=== PATIENT | male | born 1955 | race Caucasian/White ===

== ENCOUNTER 2021-01-08 10:47 | Inpatient (IN) | payer OTHER ==
[2021-01-08] MEDS ORDERED: MAGNESIUM CITRATE 300 ML BOTTLE PO PRN (11:44)
[2021-01-08] MEDS ORDERED: MAG HYDROX/AL HYDROX/SIMETH 30 ML UNIT-DOSE CUP PO PRN (11:44)
[2021-01-08] MEDS ORDERED: NICOTINE 10 MG CARTRIDGE (INHALER) IH PRN (11:44)
[2021-01-08] MEDS ORDERED: BISMUTH SUBSALICYLATE 524 MG/30 ML PO PRN (11:44)
[2021-01-08] MEDS ORDERED: IBUPROFEN 400 MG TABLET (FP) PO PRN (11:44)
[2021-01-08] MEDS ORDERED: MENTHOL/PHENOL 1 EACH UD MM PRN (11:44)
[2021-01-08] MEDS ORDERED: ONDANSETRON *ODT* 4 MG TABLET SL PRN (11:44)
[2021-01-08] MEDS ORDERED: ACETAMINOPHEN 325 MG TABLET (FP) PO PRN ×2 (11:44)
[2021-01-08] MEDS ORDERED: MAGNESIUM HYDROX 2400MG/30ML ORAL SUSPENSION 30 ML CUP PO PRN (11:44)
[2021-01-08 12:05] VITALS: BMI 26.1
[2021-01-08] MEDS: NICOTINE 7 MG/24 HOURS TOPICAL PATCH TD SCH (14:58)
[2021-01-08] MEDS: PRENATAL VITAMINS W/ FOLIC ACID TABLET (FP) PO SCH (14:58)
[2021-01-08] MEDS: hydrOXYzine PAMOATE 25 MG CAPSULE (FP) PO SCH ×3 (14:59→22:17)
[2021-01-08 17:35] LABS: HEMATOCRIT 30.8 % (35.4-49); HEMOGLOBIN 10.5 GM/dL (11.7-16.9); MCH 29.5 pg (25.7-33.7); MCHC 34.1 g/dl (32.0-35.9); MEAN CELL VOLUME 86.4 fl (80-96); MEAN PLT VOLUME 7.5 fl (7.5-11.1); PLATELET COUNT 85 10^3/uL (134-434); RBC 3.56 M/mm3 (4.00-5.60); RDW 17.1 % (11.9-15.9); WHITE BLOOD COUNT 3.1 K/mm3 (4.0-10.0)
[2021-01-08 17:37] LABS: CALCIUM 8.5 mg/dL (8.5-10.1)
[2021-01-08 17:38] LABS: ALBUMIN 2.9 g/dl (3.4-5.0); BLOOD UREA NITROGEN 12.4 mg/dL (7-18)
[2021-01-08 17:41] LABS: CREATININE 0.6 mg/dL (0.55-1.3)
[2021-01-08 17:43] LABS: TOT PROT 7.4 g/dl (6.4-8.2)
[2021-01-08] MEDS ORDERED: THIAMINE HCL 100 MG TABLET (FP) PO SCH (22:00)
[2021-01-08] MEDS ORDERED: MELATONIN 5 MG TABLETS PO SCH (22:00)
[2021-01-08] MEDS: METHOCARBAMOL 500 MG TABLET PO PRN (22:19)
[2021-01-08] MEDS: BACITRACIN 15 GM TUBE TOPICAL OINTMENT TP SCH (23:46)
[2021-01-09] MEDS: METHOCARBAMOL 500 MG TABLET PO PRN (04:58)
[2021-01-09] MEDS: hydrOXYzine PAMOATE 25 MG CAPSULE (FP) PO SCH ×4 (05:00→17:38)
[2021-01-09] MEDS: ALBUTEROL SO4 HFA INHALER IH PRN ×2 (05:18→09:46)
[2021-01-09] MEDS ORDERED: LEVOTHYROXINE NA 75 MCG TABLET (FP) PO SCH (10:30)
[2021-01-09] MEDS ORDERED: LEVOTHYROXINE NA 25 MCG TABLET (FP) PO SCH (10:30)
[2021-01-09] MEDS ORDERED: LISINOPRIL 5 MG TABLET PO SCH (10:30)
[2021-01-09] MEDS ORDERED: methaDONE HCL 10 MG TABLET PO SCH (10:45)
[2021-01-09] MEDS: BACITRACIN 15 GM TUBE TOPICAL OINTMENT TP SCH (11:26)
[2021-01-09] MEDS ORDERED: methaDONE 40 MG, methaDONE 30 MG PO SCH ×2 (11:45→12:00)
[2021-01-09] MEDS ORDERED: methaDONE HCL 40 MG DISPERSABLE TABLET ONE (11:52)
[2021-01-09] MEDS ORDERED: methaDONE HCL 10 MG TABLET ONE (11:52)
[2021-01-09] MEDS: GABAPENTIN 300 MG CAPSULE PO SCH ×2 (11:53→13:58)
[2021-01-09] MEDS: PRENATAL VITAMINS W/ FOLIC ACID TABLET (FP) PO SCH (11:53)
[2021-01-09] MEDS: NICOTINE 7 MG/24 HOURS TOPICAL PATCH TD SCH (11:53)
[2021-01-09] MEDS ORDERED: FLU VACC QS2021-22(6MOS UP)/PF 60 MCG/0.5 ML SYRINGE IM ONE (12:00)
[2021-01-09] MEDS ORDERED: PNEUMOCOCCAL 23 VACCINE 0.5 ML VIAL IM ONE (12:00)
[2021-01-09 12:46] VITALS: BP 123/73; PULSE 72; TEMP 98.8
[2021-01-09] MEDS ORDERED: PNEUMOC 13-VAL CONJ-DIP CRM/PF 0.5 ML DISP.SYRIN IM ONE (14:34)
[2021-01-09] MEDS ORDERED: PATIENT'S OWN MEDICATION (NON-FORMULARY) (Sitagliptin Phos/Metformin Hcl [Janumet 50-1,000 PO SCH (22:00)
[2021-01-09] MEDS ORDERED: ATORVASTATIN CA 80 MG TABLET (FP) PO SCH (22:00)
[2021-01-10] MEDS ORDERED: FUROSEMIDE 40 MG TABLET (FP) PO SCH (10:00)
[2021-01-10] MEDS ORDERED: PATIENT'S OWN MEDICATION (NON-FORMULARY) (Omeprazole 20 MG Capsule.Dr) PO SCH (10:00)
== END 2021-01-09 18:12 | disposition other institution (70) | DRG 897 ==
LOC: YASAS 10:47 → Y3N 12:04
PROVIDERS: ADMIT Allergy & Immunology; ATTEND Allergy & Immunology
PROC: HZ2ZZZZ Detoxification Services for Substance Abuse Treatment (ICD-10-PCS; principal; 2021-01-08)
DX: F10.230 Alcohol dependence with withdrawal, uncomplicated (principal); F14.20 Cocaine dependence, uncomplicated; F11.20 Opioid dependence, uncomplicated; F17.210 Nicotine dependence, cigarettes, uncomplicated; F20.9 Schizophrenia, unspecified; Z21 Asymptomatic human immunodeficiency virus [HIV] infection status; E78.5 Hyperlipidemia, unspecified; E03.9 Hypothyroidism, unspecified; E11.9 Type 2 diabetes mellitus without complications; Z79.84 Long term (current) use of oral hypoglycemic drugs; I10 Essential (primary) hypertension; J45.909 Unspecified asthma, uncomplicated; L97.519 Non-pressure chronic ulcer of other part of right foot with unspecified severity; Z89.421 Acquired absence of other right toe(s); Z99.89 Dependence on other enabling machines and devices; Z86.19 Personal history of other infectious and parasitic diseases; Z98.890 Other specified postprocedural states
CPT/HCPCS: 36415; 80053; 82962; 85027; 86780; C9803; U0003; U0005

== ENCOUNTER 2021-01-09 18:12 | Inpatient (IN) | payer OTHER ==
[2021-01-09] MEDS ORDERED: NICOTINE 10 MG CARTRIDGE (INHALER) IH PRN (19:48)
[2021-01-09] MEDS ORDERED: MENTHOL/PHENOL 1 EACH UD MM PRN (19:48)
[2021-01-09] MEDS ORDERED: LOPERAMIDE HCL 2 MG CAPSULE PO PRN (19:48)
[2021-01-09] MEDS ORDERED: P-EPHED 60MG/TRIPROLIDI 2.5MG TABLET PO PRN (19:48)
[2021-01-09] MEDS ORDERED: MAGNESIUM CITRATE 300 ML BOTTLE PO PRN (19:48)
[2021-01-09] MEDS ORDERED: guaiFENesin 200 MG/10 ML 10 ML UNIT-DOSE CUPS PO PRN (19:48)
[2021-01-09] MEDS: hydrOXYzine PAMOATE 25 MG CAPSULE (FP) PO PRN (21:36)
[2021-01-09] MEDS: THIAMINE HCL 100 MG TABLET (FP) PO SCH (21:36)
[2021-01-09] MEDS: MELATONIN 5 MG TABLETS PO SCH (21:37)
[2021-01-10] MEDS: methaDONE HCL 10 MG TABLET PO SCH (07:05)
[2021-01-10] MEDS: GABAPENTIN 300 MG CAPSULE PO SCH ×3 (07:06→21:51)
[2021-01-10] MEDS ORDERED: PT OWN MED DRAWER 7, Y5N ONE ×3 (07:14→20:26)
[2021-01-10] MEDS: LEVOTHYROXINE NA 75 MCG TABLET (FP) PO SCH (07:15)
[2021-01-10] MEDS: metFORMIN HCL 500 MG TABLET (FP) PO SCH ×2 (08:46→17:36)
[2021-01-10] MEDS: sitaGLIPtin PHOSPHATE 50 MG TABLET PO SCH ×2 (08:47→17:37)
[2021-01-10] MEDS: PANTOPRAZOLE 20 MG TABLET PO SCH (09:18)
[2021-01-10] MEDS: hydrOXYzine PAMOATE 25 MG CAPSULE (FP) PO PRN (09:18)
[2021-01-10] MEDS: PRENATAL VITAMINS W/ FOLIC ACID TABLET (FP) PO SCH (09:18)
[2021-01-10] MEDS: NICOTINE 7 MG/24 HOURS TOPICAL PATCH TD SCH (09:19)
[2021-01-10] MEDS ORDERED: PATIENT'S OWN MEDICATION (NON-FORMULARY) (Sitagliptin Phos/Metformin Hcl [Janumet 50-1,000 PO SCH (10:00)
[2021-01-10] MEDS: LISINOPRIL 5 MG TABLET PO SCH (10:20)
[2021-01-10] MEDS: SPIRONOLACTONE 25 MG TABLET PO SCH (10:20)
[2021-01-10] MEDS: FUROSEMIDE 40 MG TABLET (FP) PO SCH (10:20)
[2021-01-10] MEDS ORDERED: FLU VACC QS2021-22(6MOS UP)/PF 60 MCG/0.5 ML SYRINGE IM ONE (12:00)
[2021-01-10] MEDS: ALBUTEROL SO4 HFA INHALER IH PRN (12:35)
[2021-01-10] MEDS: MAGNESIUM HYDROX 2400MG/30ML ORAL SUSPENSION 30 ML CUP PO PRN (17:44)
[2021-01-10] MEDS: THIAMINE HCL 100 MG TABLET (FP) PO SCH (21:59)
[2021-01-10] MEDS: BACITRACIN 0.9 GM PACKET TP SCH (21:59)
[2021-01-10] MEDS: MELATONIN 5 MG TABLETS PO SCH (21:59)
[2021-01-10] MEDS: ATORVASTATIN CA 80 MG TABLET (FP) PO SCH (21:59)
[2021-01-11] MEDS: methaDONE HCL 10 MG TABLET PO SCH (07:11)
[2021-01-11] MEDS: GABAPENTIN 300 MG CAPSULE PO SCH ×4 (07:12→21:34)
[2021-01-11] MEDS: metFORMIN HCL 500 MG TABLET (FP) PO SCH ×2 (07:12→16:33)
[2021-01-11] MEDS: LEVOTHYROXINE NA 75 MCG TABLET (FP) PO SCH (07:12)
[2021-01-11] MEDS: sitaGLIPtin PHOSPHATE 50 MG TABLET PO SCH ×2 (07:12→16:34)
[2021-01-11] MEDS ORDERED: PT OWN MED DRAWER 7, Y5N ONE ×3 (07:14→19:18)
[2021-01-11] MEDS: hydrOXYzine PAMOATE 25 MG CAPSULE (FP) PO PRN (07:43)
[2021-01-11] MEDS: SPIRONOLACTONE 25 MG TABLET PO SCH (10:04)
[2021-01-11] MEDS: PRENATAL VITAMINS W/ FOLIC ACID TABLET (FP) PO SCH (10:05)
[2021-01-11] MEDS: LISINOPRIL 5 MG TABLET PO SCH (10:05)
[2021-01-11] MEDS: FUROSEMIDE 40 MG TABLET (FP) PO SCH (10:05)
[2021-01-11] MEDS: PANTOPRAZOLE 20 MG TABLET PO SCH (10:05)
[2021-01-11] MEDS: NICOTINE 7 MG/24 HOURS TOPICAL PATCH TD SCH (10:06)
[2021-01-11] MEDS: BACITRACIN 0.9 GM PACKET TP SCH ×2 (10:06→21:34)
[2021-01-11] MEDS: ATORVASTATIN CA 80 MG TABLET (FP) PO SCH (21:30)
[2021-01-11] MEDS: THIAMINE HCL 100 MG TABLET (FP) PO SCH (21:30)
[2021-01-11] MEDS: MELATONIN 5 MG TABLETS PO SCH (21:31)
[2021-01-12] MEDS ORDERED: PT OWN MED DRAWER 7, Y5N ONE ×3 (03:51→13:52)
[2021-01-12] MEDS ORDERED: methaDONE HCL 40 MG DISPERSABLE TABLET ONE (04:02)
[2021-01-12] MEDS ORDERED: methaDONE HCL 10 MG TABLET ONE (04:02)
[2021-01-12] MEDS: methaDONE 40 MG, methaDONE 30 MG PO SCH (06:15)
[2021-01-12] MEDS: sitaGLIPtin PHOSPHATE 50 MG TABLET PO SCH ×2 (06:16→17:01)
[2021-01-12] MEDS: GABAPENTIN 300 MG CAPSULE PO SCH ×3 (06:16→21:40)
[2021-01-12] MEDS: metFORMIN HCL 500 MG TABLET (FP) PO SCH ×2 (06:16→17:01)
[2021-01-12] MEDS: LEVOTHYROXINE NA 75 MCG TABLET (FP) PO SCH (06:16)
[2021-01-12] MEDS: BACITRACIN 0.9 GM PACKET TP SCH ×2 (09:15→21:40)
[2021-01-12] MEDS: PRENATAL VITAMINS W/ FOLIC ACID TABLET (FP) PO SCH (09:15)
[2021-01-12] MEDS: NICOTINE 7 MG/24 HOURS TOPICAL PATCH TD SCH (09:15)
[2021-01-12] MEDS: PANTOPRAZOLE 20 MG TABLET PO SCH (09:16)
[2021-01-12] MEDS: LISINOPRIL 5 MG TABLET PO SCH (09:57)
[2021-01-12] MEDS: SPIRONOLACTONE 25 MG TABLET PO SCH (09:57)
[2021-01-12] MEDS: FUROSEMIDE 40 MG TABLET (FP) PO SCH (09:57)
[2021-01-12] MEDS ORDERED: TUBERCULIN PPD 5 TU/0.1ML VIAL ID ONE (10:00)
[2021-01-12] MEDS: MELATONIN 5 MG TABLETS PO SCH (21:40)
[2021-01-12] MEDS: ATORVASTATIN CA 80 MG TABLET (FP) PO SCH (21:40)
[2021-01-12] MEDS: THIAMINE HCL 100 MG TABLET (FP) PO SCH (21:42)
[2021-01-13] MEDS ORDERED: methaDONE HCL 40 MG DISPERSABLE TABLET ONE (03:35)
[2021-01-13] MEDS ORDERED: methaDONE HCL 10 MG TABLET ONE (03:35)
[2021-01-13] MEDS ORDERED: PT OWN MED DRAWER 7, Y5N ONE ×2 (03:37→19:32)
[2021-01-13] MEDS: metFORMIN HCL 500 MG TABLET (FP) PO SCH ×2 (06:54→16:42)
[2021-01-13] MEDS: sitaGLIPtin PHOSPHATE 50 MG TABLET PO SCH ×2 (06:55→16:42)
[2021-01-13] MEDS: GABAPENTIN 300 MG CAPSULE PO SCH ×3 (06:55→21:24)
[2021-01-13] MEDS: LEVOTHYROXINE NA 75 MCG TABLET (FP) PO SCH (06:55)
[2021-01-13] MEDS: methaDONE 40 MG, methaDONE 30 MG PO SCH (06:55)
[2021-01-13] MEDS: MAGNESIUM HYDROX 2400MG/30ML ORAL SUSPENSION 30 ML CUP PO PRN (07:26)
[2021-01-13] MEDS: PRENATAL VITAMINS W/ FOLIC ACID TABLET (FP) PO SCH (09:36)
[2021-01-13] MEDS: PANTOPRAZOLE 20 MG TABLET PO SCH (09:36)
[2021-01-13] MEDS: hydrOXYzine PAMOATE 25 MG CAPSULE (FP) PO PRN (09:36)
[2021-01-13] MEDS: NICOTINE 7 MG/24 HOURS TOPICAL PATCH TD SCH (09:37)
[2021-01-13] MEDS: BACITRACIN 0.9 GM PACKET TP SCH ×2 (09:37→21:23)
[2021-01-13] MEDS: FUROSEMIDE 40 MG TABLET (FP) PO SCH (10:40)
[2021-01-13] MEDS: SPIRONOLACTONE 25 MG TABLET PO SCH (10:41)
[2021-01-13] MEDS: LISINOPRIL 5 MG TABLET PO SCH (10:41)
[2021-01-13 11:39] LABS: URINE APPEARANCE CLEAR; URINE BILIRUBIN NEGATIVE (NEGATIVE); URINE COLOR YELLOW; URINE GLUCOSE (UA) NEGATIVE (NEGATIVE); URINE KETONE NEGATIVE (NEGATIVE); URINE LEUK ESTERASE NEGATIVE (NEGATIVE); URINE NITRITE NEGATIVE (NEGATIVE); URINE PROTEIN NEGATIVE (NEGATIVE)
[2021-01-13] MEDS: MELATONIN 5 MG TABLETS PO SCH (21:24)
[2021-01-13] MEDS: THIAMINE HCL 100 MG TABLET (FP) PO SCH (21:24)
[2021-01-13] MEDS: ATORVASTATIN CA 80 MG TABLET (FP) PO SCH (21:24)
[2021-01-14] MEDS ORDERED: methaDONE HCL 10 MG TABLET ONE (03:18)
[2021-01-14] MEDS ORDERED: methaDONE HCL 40 MG DISPERSABLE TABLET ONE (03:19)
[2021-01-14] MEDS ORDERED: PT OWN MED DRAWER 7, Y5N ONE ×3 (03:20→11:55)
[2021-01-14] MEDS: GABAPENTIN 300 MG CAPSULE PO SCH ×3 (06:47→21:45)
[2021-01-14] MEDS: methaDONE 40 MG, methaDONE 30 MG PO SCH (06:47)
[2021-01-14] MEDS: LEVOTHYROXINE NA 75 MCG TABLET (FP) PO SCH (06:47)
[2021-01-14] MEDS: sitaGLIPtin PHOSPHATE 50 MG TABLET PO SCH ×2 (08:35→17:38)
[2021-01-14] MEDS: metFORMIN HCL 500 MG TABLET (FP) PO SCH ×2 (08:35→17:37)
[2021-01-14] MEDS: BACITRACIN 0.9 GM PACKET TP SCH ×2 (09:36→21:48)
[2021-01-14] MEDS: PRENATAL VITAMINS W/ FOLIC ACID TABLET (FP) PO SCH (09:36)
[2021-01-14] MEDS: FUROSEMIDE 40 MG TABLET (FP) PO SCH (09:36)
[2021-01-14] MEDS: SPIRONOLACTONE 25 MG TABLET PO SCH (09:36)
[2021-01-14] MEDS: NICOTINE 7 MG/24 HOURS TOPICAL PATCH TD SCH (09:37)
[2021-01-14] MEDS: PANTOPRAZOLE 20 MG TABLET PO SCH (09:38)
[2021-01-14] MEDS: LISINOPRIL 5 MG TABLET PO SCH (09:38)
[2021-01-14] MEDS ORDERED: FLU VACC QS2021-22(6MOS UP)/PF 60 MCG/0.5 ML SYRINGE IM ONE (12:00)
[2021-01-14] MEDS: MELATONIN 5 MG TABLETS PO SCH (21:45)
[2021-01-14] MEDS: ATORVASTATIN CA 80 MG TABLET (FP) PO SCH (21:45)
[2021-01-14] MEDS: THIAMINE HCL 100 MG TABLET (FP) PO SCH (21:45)
[2021-01-15] MEDS ORDERED: methaDONE HCL 10 MG TABLET ONE (04:03)
[2021-01-15] MEDS ORDERED: methaDONE HCL 40 MG DISPERSABLE TABLET ONE (04:03)
[2021-01-15] MEDS: metFORMIN HCL 500 MG TABLET (FP) PO SCH ×2 (06:25→16:29)
[2021-01-15] MEDS: methaDONE 40 MG, methaDONE 30 MG PO SCH (06:25)
[2021-01-15] MEDS: GABAPENTIN 300 MG CAPSULE PO SCH ×3 (06:25→21:18)
[2021-01-15] MEDS: sitaGLIPtin PHOSPHATE 50 MG TABLET PO SCH ×2 (06:25→16:29)
[2021-01-15] MEDS: LEVOTHYROXINE NA 75 MCG TABLET (FP) PO SCH (06:25)
[2021-01-15] MEDS: LISINOPRIL 5 MG TABLET PO SCH (09:46)
[2021-01-15] MEDS: PRENATAL VITAMINS W/ FOLIC ACID TABLET (FP) PO SCH (09:46)
[2021-01-15] MEDS: BACITRACIN 0.9 GM PACKET TP SCH ×2 (09:46→21:18)
[2021-01-15] MEDS: PANTOPRAZOLE 20 MG TABLET PO SCH (09:46)
[2021-01-15] MEDS: FUROSEMIDE 40 MG TABLET (FP) PO SCH (09:47)
[2021-01-15] MEDS: SPIRONOLACTONE 25 MG TABLET PO SCH (09:47)
[2021-01-15] MEDS: NICOTINE 7 MG/24 HOURS TOPICAL PATCH TD SCH (09:47)
[2021-01-15] MEDS ORDERED: PT OWN MED DRAWER 7, Y5N ONE ×2 (18:50→21:35)
[2021-01-15] MEDS: THIAMINE HCL 100 MG TABLET (FP) PO SCH (21:17)
[2021-01-15] MEDS: MELATONIN 5 MG TABLETS PO SCH (21:17)
[2021-01-15] MEDS: ATORVASTATIN CA 80 MG TABLET (FP) PO SCH (21:18)
[2021-01-15] MEDS: DOCUSATE SODIUM 100 MG CAPSULE (FP) PO SCH (21:18)
[2021-01-16] MEDS ORDERED: methaDONE HCL 40 MG DISPERSABLE TABLET ONE (03:23)
[2021-01-16] MEDS ORDERED: methaDONE HCL 10 MG TABLET ONE (03:23)
[2021-01-16] MEDS ORDERED: PT OWN MED DRAWER 7, Y5N ONE ×2 (03:25→19:40)
[2021-01-16] MEDS: GABAPENTIN 300 MG CAPSULE PO SCH ×3 (06:28→21:32)
[2021-01-16] MEDS: sitaGLIPtin PHOSPHATE 50 MG TABLET PO SCH ×2 (06:28→17:18)
[2021-01-16] MEDS: LEVOTHYROXINE NA 75 MCG TABLET (FP) PO SCH (06:28)
[2021-01-16] MEDS: metFORMIN HCL 500 MG TABLET (FP) PO SCH ×2 (06:28→17:18)
[2021-01-16] MEDS: methaDONE 40 MG, methaDONE 30 MG PO SCH (06:29)
[2021-01-16] MEDS: ALBUTEROL SO4 HFA INHALER IH PRN (09:22)
[2021-01-16] MEDS: BACITRACIN 0.9 GM PACKET TP SCH ×2 (09:22→21:31)
[2021-01-16] MEDS: SPIRONOLACTONE 25 MG TABLET PO SCH (09:22)
[2021-01-16] MEDS: LISINOPRIL 5 MG TABLET PO SCH (09:23)
[2021-01-16] MEDS: DOCUSATE SODIUM 100 MG CAPSULE (FP) PO SCH ×2 (09:23→21:31)
[2021-01-16] MEDS: PANTOPRAZOLE 20 MG TABLET PO SCH (09:23)
[2021-01-16] MEDS: PRENATAL VITAMINS W/ FOLIC ACID TABLET (FP) PO SCH (09:23)
[2021-01-16] MEDS: NICOTINE 7 MG/24 HOURS TOPICAL PATCH TD SCH (09:24)
[2021-01-16] MEDS: FUROSEMIDE 40 MG TABLET (FP) PO SCH (09:25)
[2021-01-16] MEDS ORDERED: hydrOXYzine PAMOATE 25 MG CAPSULE (FP) PO PRN (15:29)
[2021-01-16] MEDS: THIAMINE HCL 100 MG TABLET (FP) PO SCH (21:31)
[2021-01-16] MEDS: ATORVASTATIN CA 80 MG TABLET (FP) PO SCH (21:31)
[2021-01-16] MEDS: MELATONIN 5 MG TABLETS PO SCH (21:32)
[2021-01-17] MEDS ORDERED: methaDONE HCL 10 MG TABLET ONE (03:41)
[2021-01-17] MEDS ORDERED: methaDONE HCL 40 MG DISPERSABLE TABLET ONE (03:41)
[2021-01-17] MEDS ORDERED: PT OWN MED DRAWER 7, Y5N ONE ×2 (03:43→19:21)
[2021-01-17] MEDS: methaDONE 40 MG, methaDONE 30 MG PO SCH (06:05)
[2021-01-17] MEDS: sitaGLIPtin PHOSPHATE 50 MG TABLET PO SCH ×2 (06:05→17:42)
[2021-01-17] MEDS: LEVOTHYROXINE NA 75 MCG TABLET (FP) PO SCH (06:05)
[2021-01-17] MEDS: metFORMIN HCL 500 MG TABLET (FP) PO SCH ×2 (06:05→17:42)
[2021-01-17] MEDS: GABAPENTIN 300 MG CAPSULE PO SCH ×3 (06:05→21:21)
[2021-01-17] MEDS: BACITRACIN 0.9 GM PACKET TP SCH ×2 (09:26→21:48)
[2021-01-17] MEDS: PRENATAL VITAMINS W/ FOLIC ACID TABLET (FP) PO SCH (09:26)
[2021-01-17] MEDS: DOCUSATE SODIUM 100 MG CAPSULE (FP) PO SCH ×2 (09:26→21:21)
[2021-01-17] MEDS: LISINOPRIL 5 MG TABLET PO SCH (09:28)
[2021-01-17] MEDS: PANTOPRAZOLE 20 MG TABLET PO SCH (09:28)
[2021-01-17] MEDS: SPIRONOLACTONE 25 MG TABLET PO SCH (09:28)
[2021-01-17] MEDS: NICOTINE 7 MG/24 HOURS TOPICAL PATCH TD SCH (09:28)
[2021-01-17] MEDS: FUROSEMIDE 40 MG TABLET (FP) PO SCH (09:28)
[2021-01-17] MEDS: MELATONIN 5 MG TABLETS PO SCH (21:20)
[2021-01-17] MEDS: THIAMINE HCL 100 MG TABLET (FP) PO SCH (21:20)
[2021-01-17] MEDS: ATORVASTATIN CA 80 MG TABLET (FP) PO SCH (21:21)
[2021-01-17] MEDS: MAG HYDROX/AL HYDROX/SIMETH 30 ML UNIT-DOSE CUP PO PRN (21:22)
[2021-01-18] MEDS ORDERED: methaDONE HCL 40 MG DISPERSABLE TABLET ONE (02:40)
[2021-01-18] MEDS ORDERED: methaDONE HCL 10 MG TABLET ONE (02:40)
[2021-01-18] MEDS ORDERED: PT OWN MED DRAWER 7, Y5N ONE ×3 (05:35→20:30)
[2021-01-18] MEDS: methaDONE 40 MG, methaDONE 30 MG PO SCH (05:59)
[2021-01-18] MEDS: LEVOTHYROXINE NA 75 MCG TABLET (FP) PO SCH (06:01)
[2021-01-18] MEDS: GABAPENTIN 300 MG CAPSULE PO SCH ×3 (06:01→21:44)
[2021-01-18] MEDS: metFORMIN HCL 500 MG TABLET (FP) PO SCH ×2 (06:01→17:03)
[2021-01-18] MEDS: sitaGLIPtin PHOSPHATE 50 MG TABLET PO SCH ×2 (06:04→19:06)
[2021-01-18] MEDS: IBUPROFEN 400 MG TABLET (FP) PO PRN ×2 (07:31→14:17)
[2021-01-18] MEDS: PANTOPRAZOLE 20 MG TABLET PO SCH (09:39)
[2021-01-18] MEDS: BACITRACIN 0.9 GM PACKET TP SCH ×2 (09:39→21:43)
[2021-01-18] MEDS: NICOTINE 7 MG/24 HOURS TOPICAL PATCH TD SCH (09:40)
[2021-01-18] MEDS: PRENATAL VITAMINS W/ FOLIC ACID TABLET (FP) PO SCH (09:40)
[2021-01-18] MEDS: SPIRONOLACTONE 25 MG TABLET PO SCH (09:41)
[2021-01-18] MEDS: LISINOPRIL 5 MG TABLET PO SCH (09:41)
[2021-01-18] MEDS: FUROSEMIDE 40 MG TABLET (FP) PO SCH (09:41)
[2021-01-18] MEDS: DOCUSATE SODIUM 100 MG CAPSULE (FP) PO SCH ×2 (09:41→21:44)
[2021-01-18] MEDS: THIAMINE HCL 100 MG TABLET (FP) PO SCH (21:43)
[2021-01-18] MEDS: MELATONIN 5 MG TABLETS PO SCH (21:44)
[2021-01-18] MEDS: ATORVASTATIN CA 80 MG TABLET (FP) PO SCH (21:44)
[2021-01-19] MEDS ORDERED: PT OWN MED DRAWER 7, Y5N ONE ×2 (03:23→08:48)
[2021-01-19] MEDS ORDERED: methaDONE HCL 40 MG DISPERSABLE TABLET ONE (04:22)
[2021-01-19] MEDS ORDERED: methaDONE HCL 10 MG TABLET ONE (04:22)
[2021-01-19] MEDS: methaDONE 40 MG, methaDONE 30 MG PO SCH (06:25)
[2021-01-19] MEDS: GABAPENTIN 300 MG CAPSULE PO SCH ×3 (06:25→21:10)
[2021-01-19] MEDS: LEVOTHYROXINE NA 75 MCG TABLET (FP) PO SCH (06:25)
[2021-01-19] MEDS: sitaGLIPtin PHOSPHATE 50 MG TABLET PO SCH ×2 (06:26→16:38)
[2021-01-19] MEDS: metFORMIN HCL 500 MG TABLET (FP) PO SCH ×2 (06:26→16:38)
[2021-01-19] MEDS: IBUPROFEN 400 MG TABLET (FP) PO PRN ×3 (06:29→21:12)
[2021-01-19] MEDS: BACITRACIN 0.9 GM PACKET TP SCH ×2 (09:35→22:25)
[2021-01-19] MEDS: DOCUSATE SODIUM 100 MG CAPSULE (FP) PO SCH ×2 (09:36→21:10)
[2021-01-19] MEDS: PANTOPRAZOLE 20 MG TABLET PO SCH (09:36)
[2021-01-19] MEDS: PRENATAL VITAMINS W/ FOLIC ACID TABLET (FP) PO SCH (09:36)
[2021-01-19] MEDS: ALBUTEROL SO4 HFA INHALER IH PRN (09:36)
[2021-01-19] MEDS: SPIRONOLACTONE 25 MG TABLET PO SCH (09:37)
[2021-01-19] MEDS: FUROSEMIDE 40 MG TABLET (FP) PO SCH (09:37)
[2021-01-19] MEDS: NICOTINE 7 MG/24 HOURS TOPICAL PATCH TD SCH (09:38)
[2021-01-19] MEDS: LISINOPRIL 5 MG TABLET PO SCH (09:38)
[2021-01-19] MEDS: MELATONIN 5 MG TABLETS PO SCH (21:10)
[2021-01-19] MEDS: ATORVASTATIN CA 80 MG TABLET (FP) PO SCH (21:10)
[2021-01-19] MEDS: THIAMINE HCL 100 MG TABLET (FP) PO SCH (22:25)
[2021-01-20] MEDS ORDERED: methaDONE HCL 40 MG DISPERSABLE TABLET ONE (04:09)
[2021-01-20] MEDS ORDERED: methaDONE HCL 10 MG TABLET ONE (04:09)
[2021-01-20] MEDS ORDERED: PT OWN MED DRAWER 7, Y5N ONE ×2 (04:10→19:32)
[2021-01-20] MEDS: methaDONE 40 MG, methaDONE 30 MG PO SCH (06:15)
[2021-01-20] MEDS: sitaGLIPtin PHOSPHATE 50 MG TABLET PO SCH ×2 (06:17→17:47)
[2021-01-20] MEDS: GABAPENTIN 300 MG CAPSULE PO SCH ×3 (06:17→21:35)
[2021-01-20] MEDS: metFORMIN HCL 500 MG TABLET (FP) PO SCH ×2 (06:17→17:47)
[2021-01-20] MEDS: LEVOTHYROXINE NA 75 MCG TABLET (FP) PO SCH (06:17)
[2021-01-20] MEDS: IBUPROFEN 400 MG TABLET (FP) PO PRN ×2 (06:20→21:38)
[2021-01-20] MEDS: SPIRONOLACTONE 25 MG TABLET PO SCH (10:00)
[2021-01-20] MEDS: NICOTINE 7 MG/24 HOURS TOPICAL PATCH TD SCH (10:00)
[2021-01-20] MEDS: DOCUSATE SODIUM 100 MG CAPSULE (FP) PO SCH ×2 (10:03→21:35)
[2021-01-20] MEDS: FUROSEMIDE 40 MG TABLET (FP) PO SCH (10:03)
[2021-01-20] MEDS: LISINOPRIL 5 MG TABLET PO SCH (10:04)
[2021-01-20] MEDS: BACITRACIN 0.9 GM PACKET TP SCH ×2 (10:04→21:35)
[2021-01-20] MEDS: PANTOPRAZOLE 20 MG TABLET PO SCH (10:04)
[2021-01-20] MEDS: PRENATAL VITAMINS W/ FOLIC ACID TABLET (FP) PO SCH (10:06)
[2021-01-20] MEDS: ATORVASTATIN CA 80 MG TABLET (FP) PO SCH (21:35)
[2021-01-20] MEDS: MELATONIN 5 MG TABLETS PO SCH (21:35)
[2021-01-20] MEDS: THIAMINE HCL 100 MG TABLET (FP) PO SCH (21:36)
[2021-01-21] MEDS: ACETAMINOPHEN 325 MG TABLET (FP) PO PRN (01:31)
[2021-01-21] MEDS ORDERED: methaDONE HCL 10 MG TABLET ONE (03:20)
[2021-01-21] MEDS ORDERED: methaDONE HCL 40 MG DISPERSABLE TABLET ONE (03:21)
[2021-01-21] MEDS ORDERED: PT OWN MED DRAWER 7, Y5N ONE ×6 (03:56→21:39)
[2021-01-21] MEDS: methaDONE 40 MG, methaDONE 30 MG PO SCH (06:36)
[2021-01-21] MEDS: LEVOTHYROXINE NA 75 MCG TABLET (FP) PO SCH (06:38)
[2021-01-21] MEDS: IBUPROFEN 400 MG TABLET (FP) PO PRN ×2 (06:38→16:56)
[2021-01-21] MEDS: GABAPENTIN 300 MG CAPSULE PO SCH ×3 (06:38→21:10)
[2021-01-21] MEDS: sitaGLIPtin PHOSPHATE 50 MG TABLET PO SCH ×2 (07:47→16:55)
[2021-01-21] MEDS: metFORMIN HCL 500 MG TABLET (FP) PO SCH ×2 (07:48→16:54)
[2021-01-21] MEDS: BACITRACIN 0.9 GM PACKET TP SCH ×2 (09:18→21:09)
[2021-01-21] MEDS: PANTOPRAZOLE 20 MG TABLET PO SCH (09:18)
[2021-01-21] MEDS: DOCUSATE SODIUM 100 MG CAPSULE (FP) PO SCH ×2 (09:18→21:11)
[2021-01-21] MEDS: PRENATAL VITAMINS W/ FOLIC ACID TABLET (FP) PO SCH (09:18)
[2021-01-21] MEDS: LISINOPRIL 5 MG TABLET PO SCH (09:19)
[2021-01-21] MEDS: NICOTINE 7 MG/24 HOURS TOPICAL PATCH TD SCH (09:19)
[2021-01-21] MEDS: FUROSEMIDE 40 MG TABLET (FP) PO SCH (09:20)
[2021-01-21] MEDS: SPIRONOLACTONE 25 MG TABLET PO SCH (09:20)
[2021-01-21] MEDS: MAGNESIUM HYDROX 2400MG/30ML ORAL SUSPENSION 30 ML CUP PO PRN (15:59)
[2021-01-21] MEDS: ATORVASTATIN CA 80 MG TABLET (FP) PO SCH (21:09)
[2021-01-21] MEDS: MELATONIN 5 MG TABLETS PO SCH (21:10)
[2021-01-21] MEDS: THIAMINE HCL 100 MG TABLET (FP) PO SCH (21:10)
[2021-01-21] MEDS: FLUOCINONIDE 0.05% TOP OINT (60 GM TUBE) TP SCH (21:11)
[2021-01-22] MEDS ORDERED: PT OWN MED DRAWER 7, Y5N ONE ×2 (00:35→12:10)
[2021-01-22] MEDS: IBUPROFEN 400 MG TABLET (FP) PO PRN (02:36)
[2021-01-22] MEDS ORDERED: methaDONE HCL 10 MG TABLET ONE (03:54)
[2021-01-22] MEDS ORDERED: methaDONE HCL 40 MG DISPERSABLE TABLET ONE (03:54)
[2021-01-22] MEDS: metFORMIN HCL 500 MG TABLET (FP) PO SCH (06:26)
[2021-01-22] MEDS: methaDONE 40 MG, methaDONE 30 MG PO SCH (06:26)
[2021-01-22] MEDS: sitaGLIPtin PHOSPHATE 50 MG TABLET PO SCH (06:26)
[2021-01-22] MEDS: GABAPENTIN 300 MG CAPSULE PO SCH ×2 (06:26→14:42)
[2021-01-22] MEDS: ACETAMINOPHEN 325 MG TABLET (FP) PO PRN (06:29)
[2021-01-22 06:46] VITALS: TEMP 97.1
[2021-01-22] MEDS ORDERED: ERGOCALCIFEROL (VIT D2) 50,000 UNIT (1.25 MG) CAPSULE PO SCH ×3 (08:15→10:00)
[2021-01-22] MEDS: PANTOPRAZOLE 20 MG TABLET PO SCH (09:46)
[2021-01-22] MEDS: LEVOTHYROXINE NA 75 MCG TABLET (FP) PO SCH (09:47)
[2021-01-22] MEDS: PRENATAL VITAMINS W/ FOLIC ACID TABLET (FP) PO SCH (09:47)
[2021-01-22] MEDS: BACITRACIN 0.9 GM PACKET TP SCH (09:47)
[2021-01-22] MEDS: NICOTINE 7 MG/24 HOURS TOPICAL PATCH TD SCH (09:49)
[2021-01-22] MEDS ORDERED: PATIENT'S OWN MEDICATION (NON-FORMULARY) (Iron [Iron] 18 MG Tablet) PO SCH (10:00)
[2021-01-22] MEDS ORDERED: SULFAMETHOXAZOLE/TRIMETHOPRIM 800MG/160MG D.S. TABLET PO SCH (10:00)
[2021-01-22] MEDS: FLUOCINONIDE 0.05% TOP OINT (60 GM TUBE) TP SCH (10:44)
[2021-01-22] MEDS: SPIRONOLACTONE 25 MG TABLET PO SCH (10:44)
[2021-01-22] MEDS: FUROSEMIDE 40 MG TABLET (FP) PO SCH (10:44)
[2021-01-22 12:25] VITALS: BP 97/56; PULSE 59
[2021-01-22] MEDS: MAG HYDROX/AL HYDROX/SIMETH 30 ML UNIT-DOSE CUP PO PRN (13:09)
== END 2021-01-22 15:03 | disposition home or self-care (01) | DRG 895 ==
LOC: YASAS 18:12 → Y3E 18:14
PROVIDERS: ADMIT Allergy & Immunology; ATTEND Allergy & Immunology
PROC: HZ42ZZZ Group Counseling for Substance Abuse Treatment, Cognitive-Behavioral (ICD-10-PCS; principal; 2021-01-09)
DX: F10.20 Alcohol dependence, uncomplicated (principal); F14.20 Cocaine dependence, uncomplicated; F11.20 Opioid dependence, uncomplicated; F19.282 Other psychoactive substance dependence with psychoactive substance-induced sleep disorder; F19.24 Other psychoactive substance dependence with psychoactive substance-induced mood disorder; F31.9 Bipolar disorder, unspecified; F20.9 Schizophrenia, unspecified; Z21 Asymptomatic human immunodeficiency virus [HIV] infection status; E78.5 Hyperlipidemia, unspecified; E03.9 Hypothyroidism, unspecified; I10 Essential (primary) hypertension; J45.909 Unspecified asthma, uncomplicated; Z86.19 Personal history of other infectious and parasitic diseases; Z98.890 Other specified postprocedural states; Z89.421 Acquired absence of other right toe(s)
CPT/HCPCS: 81003; 82140; 82962; 90686; G0008

== ENCOUNTER 2022-09-29 14:07 | Inpatient (IN) | payer OTHER ==
[2022-09-29 16:01] VITALS: BMI 29.3
[2022-09-29] MEDS ORDERED: BENZOCAINE/MENTHOL (CHLORASEPTIC ) LOZENGE MM PRN (18:18)
[2022-09-29] MEDS ORDERED: COLLOIDAL OATMEAL 1 BAR EACH TP PRN (18:18)
[2022-09-29] MEDS ORDERED: NALOXONE HCL 0.4 MG/ML VIAL IM PRN (18:18)
[2022-09-29] MEDS ORDERED: MAGNESIUM HYDROX 2400MG/30ML ORAL SUSPENSION 30 ML CUP PO PRN (18:18)
[2022-09-29] MEDS ORDERED: BENZONATATE 200 MG CAPSULE PO PRN (18:18)
[2022-09-29] MEDS ORDERED: NALOXONE HCL (KLOXXADO) 8 MG SPRAY NS PRN (18:18)
[2022-09-29] MEDS ORDERED: LOPERAMIDE HCL 2 MG CAPSULE PO PRN (18:18)
[2022-09-29] MEDS ORDERED: guaiFENesin 600 MG TABLET.ER (FP) PO PRN (18:18)
[2022-09-29] MEDS ORDERED: MAG HYDROX/AL HYDROX/SIMETH 30 ML UNIT-DOSE CUP PO PRN (18:18)
[2022-09-29] MEDS ORDERED: P-EPHED 60MG/TRIPROLIDI 2.5MG TABLET PO PRN (18:18)
[2022-09-29] MEDS ORDERED: AMMONIUM LACTATE 12% LOTION 225 GM BOTTLE TP PRN (18:18)
[2022-09-29] MEDS ORDERED: POLYETHYLENE GLYCOL (HEALTHYLAX) 3350 17 GM PACKET PO PRN (18:18)
[2022-09-29] MEDS ORDERED: INSULIN SLIDING SCALE (NOVOLOG) 1 VIAL SQ ONE (20:47)
[2022-09-29] MEDS ORDERED: TUBERCULIN PPD 5 TU/0.1ML VIAL ID ONE ×2 (20:47→21:49)
[2022-09-29] MEDS: INSULIN SLIDING SCALE (NOVOLOG) 1 VIAL SQ SCH (21:10)
[2022-09-29] MEDS: MELATONIN 5 MG TABLETS PO SCH (21:16)
[2022-09-29] MEDS: THIAMINE HCL 100 MG TABLET (FP) PO SCH (21:16)
[2022-09-29] MEDS ORDERED: TUBERCULIN PPD 5 TU/0.1ML SYRINGE (IN PATIENT USE ONLY) ID ONE (22:00)
[2022-09-29] MEDS: ACETAMINOPHEN 325 MG TABLET (FP) PO PRN (22:11)
[2022-09-30] MEDS: IBUPROFEN 600 MG TABLET (FP) PO PRN ×2 (02:25→16:15)
[2022-09-30] MEDS: INSULIN SLIDING SCALE (NOVOLOG) 1 VIAL SQ SCH ×4 (06:06→21:38)
[2022-09-30] MEDS: PRENATAL VITAMINS W/ FOLIC ACID TABLET (FP) PO SCH (09:29)
[2022-09-30] MEDS ORDERED: methaDONE HCL 10 MG TABLET PO SCH ×3 (09:30→10:05)
[2022-09-30] MEDS ORDERED: ERGOCALCIFEROL (VIT D2) 50,000 UNIT (1.25 MG) CAPSULE PO SCH (09:45)
[2022-09-30] MEDS ORDERED: GABAPENTIN 300 MG CAPSULE PO SCH (09:45)
[2022-09-30] MEDS ORDERED: PATIENT'S OWN MEDICATION (NON-FORMULARY) (Dolutegravir Sodium/Lamivudine [Dovato 50-300 Mg PO SCH (10:00)
[2022-09-30] MEDS ORDERED: PATIENT'S OWN MEDICATION (NON-FORMULARY) (Insulin Aspart [Novolog Flexpen] 100 UNIT/ML Ins SQ SCH (10:00)
[2022-09-30] MEDS: COLLAGENASE CLOSTRIDIUM HIST. 30 GRAMS TUBE TP SCH (10:16)
[2022-09-30] MEDS: ASCORBIC ACID 500 MG TABLET (FP) PO SCH (10:17)
[2022-09-30] MEDS: LEVOTHYROXINE NA 25 MCG TABLET (FP) PO SCH (10:17)
[2022-09-30] MEDS: ASPIRIN 81 MG CHEWABLE TABLETS PO SCH (10:18)
[2022-09-30] MEDS: FUROSEMIDE 40 MG TABLET (FP) PO SCH (10:18)
[2022-09-30] MEDS: ERGOCALCIFEROL (VIT D2) 50,000 UNIT (1.25 MG) CAPSULE PO SCH (10:33)
[2022-09-30 11:37] LABS: HEMATOCRIT 37.6 % (35.4-49); HEMOGLOBIN 12.6 GM/dL (11.7-16.9); MCH 30.1 pg (25.7-33.7); MCHC 33.5 g/dl (32.0-35.9); MEAN PLT VOLUME 7.7 fl (7.5-11.1); PLATELET COUNT 84 10^3/uL (134-434); RBC 4.18 M/mm3 (4.00-5.60); RDW 14.8 % (11.9-15.9); WHITE BLOOD COUNT 3.2 K/mm3 (4.0-10.0)
[2022-09-30 11:40] LABS: EPI CELLS >36 /uL (0-25.1); HYALINE CASTS 16 /uL (0-3.1); PH,URINE 5.5 (5.0-8.0); URINE APPEARANCE CLEAR; URINE BACTERIA 57 /uL (0-1359); URINE BILIRUBIN 1+ (NEGATIVE); URINE COLOR DK YELLOW; URINE GLUCOSE (UA) NEGATIVE (NEGATIVE); URINE KETONE NEGATIVE (NEGATIVE); URINE LEUK ESTERASE TRACE (NEGATIVE); URINE NITRITE NEGATIVE (NEGATIVE); URINE PROTEIN 1+ (NEGATIVE); URINE RBC 7 /uL (0-23.9); URINE WBC 51 /uL (0-25.8)
[2022-09-30 12:16] LABS: POTASSIUM 4.3 mmol/L (3.5-5.1)
[2022-09-30 12:22] LABS: CALCIUM 10.3 mg/dL (8.5-10.1)
[2022-09-30 12:23] LABS: ALBUMIN 3.9 g/dl (3.4-5.0)
[2022-09-30] MEDS: ARIPiprazole 5 MG TABLET PO SCH (12:24)
[2022-09-30 12:25] LABS: BLOOD UREA NITROGEN 17.2 mg/dL (7-18); CREATININE 1.1 mg/dL (0.55-1.3)
[2022-09-30 12:26] LABS: TOT PROT 7.4 g/dl (6.4-8.2)
[2022-09-30 12:27] LABS: BILIRUBIN,TOTAL 0.6 mg/dL (0.2-1)
[2022-09-30] MEDS: GABAPENTIN 300 MG CAPSULE PO SCH ×2 (13:34→21:09)
[2022-09-30] MEDS: PANTOPRAZOLE 20 MG TABLET PO SCH (16:12)
[2022-09-30] MEDS: DOLUTEGRAVIR SODIUM 50 MG TABLET (NON-FORMULARY) PO SCH (16:12)
[2022-09-30] MEDS: THIAMINE HCL 100 MG TABLET (FP) PO SCH (21:09)
[2022-09-30] MEDS: MELATONIN 5 MG TABLETS PO SCH (21:09)
[2022-09-30] MEDS: ATORVASTATIN CA 80 MG TABLET (FP) PO SCH (21:10)
[2022-09-30] MEDS ORDERED: ATORVASTATIN CA 40 MG TABLET (FP) ONE (21:10)
[2022-09-30] MEDS: INSULIN (NOVOLOG) ASPART 100 UNITS/ML 10ML VIAL SQ SCH (21:38)
[2022-09-30] MEDS ORDERED: traZODone HCL 50 MG TABLET (FP) PO SCH (22:00)
[2022-10-01] MEDS: GABAPENTIN 300 MG CAPSULE PO SCH ×3 (06:10→21:30)
[2022-10-01] MEDS: LEVOTHYROXINE NA 25 MCG TABLET (FP) PO SCH (06:11)
[2022-10-01] MEDS: INSULIN SLIDING SCALE (NOVOLOG) 1 VIAL SQ SCH ×4 (06:12→21:32)
[2022-10-01] MEDS: ASCORBIC ACID 500 MG TABLET (FP) PO SCH (10:09)
[2022-10-01] MEDS: ARIPiprazole 5 MG TABLET PO SCH (10:09)
[2022-10-01] MEDS: PRENATAL VITAMINS W/ FOLIC ACID TABLET (FP) PO SCH (10:09)
[2022-10-01] MEDS: ASPIRIN 81 MG CHEWABLE TABLETS PO SCH (10:09)
[2022-10-01] MEDS: FUROSEMIDE 40 MG TABLET (FP) PO SCH (10:09)
[2022-10-01] MEDS: PANTOPRAZOLE 20 MG TABLET PO SCH (10:09)
[2022-10-01] MEDS: DOLUTEGRAVIR SODIUM 50 MG TABLET (NON-FORMULARY) PO SCH (10:12)
[2022-10-01] MEDS: COLLAGENASE CLOSTRIDIUM HIST. 30 GRAMS TUBE TP SCH (10:12)
[2022-10-01] MEDS: INSULIN (NOVOLOG) ASPART 100 UNITS/ML 10ML VIAL SQ SCH ×2 (11:07→21:32)
[2022-10-01] MEDS: IBUPROFEN 600 MG TABLET (FP) PO PRN (17:14)
[2022-10-01] MEDS ORDERED: ATORVASTATIN CA 40 MG TABLET (FP) ONE (18:36)
[2022-10-01] MEDS: THIAMINE HCL 100 MG TABLET (FP) PO SCH (21:29)
[2022-10-01] MEDS: MELATONIN 5 MG TABLETS PO SCH (21:29)
[2022-10-01] MEDS: ATORVASTATIN CA 80 MG TABLET (FP) PO SCH (21:30)
[2022-10-01] MEDS: traZODone HCL 50 MG TABLET (FP) PO SCH (21:30)
[2022-10-02] MEDS: LEVOTHYROXINE NA 25 MCG TABLET (FP) PO SCH (06:19)
[2022-10-02] MEDS: GABAPENTIN 300 MG CAPSULE PO SCH ×3 (06:19→21:27)
[2022-10-02] MEDS: cloNIDine HCL 0.1 MG TABLET PO PRN ×2 (06:26→21:41)
[2022-10-02] MEDS: INSULIN SLIDING SCALE (NOVOLOG) 1 VIAL SQ SCH ×5 (06:33→22:18)
[2022-10-02] MEDS: PRENATAL VITAMINS W/ FOLIC ACID TABLET (FP) PO SCH (09:36)
[2022-10-02] MEDS: INSULIN (NOVOLOG) ASPART 100 UNITS/ML 10ML VIAL SQ SCH ×2 (09:39→22:18)
[2022-10-02] MEDS: ARIPiprazole 5 MG TABLET PO SCH (09:41)
[2022-10-02] MEDS: ASPIRIN 81 MG CHEWABLE TABLETS PO SCH (09:41)
[2022-10-02] MEDS: COLLAGENASE CLOSTRIDIUM HIST. 30 GRAMS TUBE TP SCH (09:41)
[2022-10-02] MEDS: ASCORBIC ACID 500 MG TABLET (FP) PO SCH (09:41)
[2022-10-02] MEDS: DOLUTEGRAVIR SODIUM 50 MG TABLET (NON-FORMULARY) PO SCH (09:41)
[2022-10-02] MEDS: PANTOPRAZOLE 20 MG TABLET PO SCH (09:42)
[2022-10-02] MEDS: FUROSEMIDE 40 MG TABLET (FP) PO SCH (09:42)
[2022-10-02] MEDS: IBUPROFEN 600 MG TABLET (FP) PO PRN (15:06)
[2022-10-02] MEDS ORDERED: ATORVASTATIN CA 40 MG TABLET (FP) ONE (18:51)
[2022-10-02] MEDS: MELATONIN 5 MG TABLETS PO SCH (21:27)
[2022-10-02] MEDS: traZODone HCL 50 MG TABLET (FP) PO SCH (21:27)
[2022-10-02] MEDS: THIAMINE HCL 100 MG TABLET (FP) PO SCH (21:27)
[2022-10-02] MEDS: ATORVASTATIN CA 80 MG TABLET (FP) PO SCH (21:27)
[2022-10-03] MEDS: cloNIDine HCL 0.1 MG TABLET PO PRN (06:24)
[2022-10-03] MEDS: LEVOTHYROXINE NA 25 MCG TABLET (FP) PO SCH (06:24)
[2022-10-03] MEDS: GABAPENTIN 300 MG CAPSULE PO SCH ×3 (06:24→21:10)
[2022-10-03] MEDS: INSULIN SLIDING SCALE (NOVOLOG) 1 VIAL SQ SCH ×4 (06:29→21:10)
[2022-10-03] MEDS: COLLAGENASE CLOSTRIDIUM HIST. 30 GRAMS TUBE TP SCH (09:40)
[2022-10-03] MEDS: PRENATAL VITAMINS W/ FOLIC ACID TABLET (FP) PO SCH (09:40)
[2022-10-03] MEDS: INSULIN (NOVOLOG) ASPART 100 UNITS/ML 10ML VIAL SQ SCH ×2 (09:43→21:10)
[2022-10-03] MEDS: DOLUTEGRAVIR SODIUM 50 MG TABLET (NON-FORMULARY) PO SCH (09:44)
[2022-10-03] MEDS: ARIPiprazole 5 MG TABLET PO SCH (09:45)
[2022-10-03] MEDS: ASPIRIN 81 MG CHEWABLE TABLETS PO SCH (09:45)
[2022-10-03] MEDS: ASCORBIC ACID 500 MG TABLET (FP) PO SCH (09:45)
[2022-10-03] MEDS: FUROSEMIDE 40 MG TABLET (FP) PO SCH (09:45)
[2022-10-03] MEDS: PANTOPRAZOLE 20 MG TABLET PO SCH (09:45)
[2022-10-03] MEDS: IBUPROFEN 400 MG TABLET (FP) PO PRN (11:55)
[2022-10-03] MEDS ORDERED: ATORVASTATIN CA 40 MG TABLET (FP) ONE (19:13)
[2022-10-03] MEDS: ATORVASTATIN CA 80 MG TABLET (FP) PO SCH (21:08)
[2022-10-03] MEDS: traZODone HCL 50 MG TABLET (FP) PO SCH (21:08)
[2022-10-03] MEDS: MELATONIN 5 MG TABLETS PO SCH (21:10)
[2022-10-03] MEDS: THIAMINE HCL 100 MG TABLET (FP) PO SCH (21:10)
[2022-10-04] MEDS: LEVOTHYROXINE NA 25 MCG TABLET (FP) PO SCH (06:29)
[2022-10-04] MEDS: GABAPENTIN 300 MG CAPSULE PO SCH ×3 (06:30→21:07)
[2022-10-04] MEDS: INSULIN SLIDING SCALE (NOVOLOG) 1 VIAL SQ SCH ×4 (06:31→21:33)
[2022-10-04] MEDS: ASPIRIN 81 MG CHEWABLE TABLETS PO SCH (09:49)
[2022-10-04] MEDS: PANTOPRAZOLE 20 MG TABLET PO SCH (09:49)
[2022-10-04] MEDS: ARIPiprazole 5 MG TABLET PO SCH (09:49)
[2022-10-04] MEDS: PRENATAL VITAMINS W/ FOLIC ACID TABLET (FP) PO SCH (09:49)
[2022-10-04] MEDS: DOLUTEGRAVIR SODIUM 50 MG TABLET (NON-FORMULARY) PO SCH (09:50)
[2022-10-04] MEDS: ASCORBIC ACID 500 MG TABLET (FP) PO SCH (09:50)
[2022-10-04] MEDS: COLLAGENASE CLOSTRIDIUM HIST. 30 GRAMS TUBE TP SCH (09:51)
[2022-10-04] MEDS: FUROSEMIDE 40 MG TABLET (FP) PO SCH (09:54)
[2022-10-04] MEDS: INSULIN (NOVOLOG) ASPART 100 UNITS/ML 10ML VIAL SQ SCH ×2 (09:57→21:33)
[2022-10-04] MEDS: NYSTATIN 100000 UNIT/GM TOPICAL OINTMENT 15 GM TUBE TP SCH ×2 (14:42→21:14)
[2022-10-04] MEDS ORDERED: ATORVASTATIN CA 40 MG TABLET (FP) ONE (18:44)
[2022-10-04] MEDS: ATORVASTATIN CA 80 MG TABLET (FP) PO SCH (21:07)
[2022-10-04] MEDS: MELATONIN 5 MG TABLETS PO SCH (21:07)
[2022-10-04] MEDS: THIAMINE HCL 100 MG TABLET (FP) PO SCH (21:07)
[2022-10-04] MEDS: traZODone HCL 50 MG TABLET (FP) PO SCH (21:07)
[2022-10-04] MEDS: cloNIDine HCL 0.1 MG TABLET PO PRN (21:08)
[2022-10-05] MEDS: LEVOTHYROXINE NA 25 MCG TABLET (FP) PO SCH (06:33)
[2022-10-05] MEDS: GABAPENTIN 300 MG CAPSULE PO SCH ×3 (06:33→21:32)
[2022-10-05] MEDS: INSULIN SLIDING SCALE (NOVOLOG) 1 VIAL SQ SCH ×5 (06:38→21:35)
[2022-10-05] MEDS: FUROSEMIDE 40 MG TABLET (FP) PO SCH (10:29)
[2022-10-05] MEDS: ASPIRIN 81 MG CHEWABLE TABLETS PO SCH (10:29)
[2022-10-05] MEDS: ASCORBIC ACID 500 MG TABLET (FP) PO SCH (10:29)
[2022-10-05] MEDS: ARIPiprazole 5 MG TABLET PO SCH (10:29)
[2022-10-05] MEDS: PRENATAL VITAMINS W/ FOLIC ACID TABLET (FP) PO SCH (10:29)
[2022-10-05] MEDS: PANTOPRAZOLE 20 MG TABLET PO SCH (10:30)
[2022-10-05] MEDS: NYSTATIN 100000 UNIT/GM TOPICAL OINTMENT 15 GM TUBE TP SCH ×2 (10:30→21:35)
[2022-10-05] MEDS: DOLUTEGRAVIR SODIUM 50 MG TABLET (NON-FORMULARY) PO SCH (10:31)
[2022-10-05] MEDS: COLLAGENASE CLOSTRIDIUM HIST. 30 GRAMS TUBE TP SCH (10:32)
[2022-10-05] MEDS: INSULIN (NOVOLOG) ASPART 100 UNITS/ML 10ML VIAL SQ SCH (11:24)
[2022-10-05] MEDS ORDERED: ATORVASTATIN CA 40 MG TABLET (FP) ONE (18:45)
[2022-10-05] MEDS: ATORVASTATIN CA 80 MG TABLET (FP) PO SCH (21:32)
[2022-10-05] MEDS: traZODone HCL 50 MG TABLET (FP) PO SCH (21:32)
[2022-10-05] MEDS: THIAMINE HCL 100 MG TABLET (FP) PO SCH (21:32)
[2022-10-05] MEDS: MELATONIN 5 MG TABLETS PO SCH (21:32)
[2022-10-06] MEDS: GABAPENTIN 300 MG CAPSULE PO SCH ×3 (05:42→21:01)
[2022-10-06] MEDS: IBUPROFEN 400 MG TABLET (FP) PO PRN (05:48)
[2022-10-06] MEDS: INSULIN SLIDING SCALE (NOVOLOG) 1 VIAL SQ SCH ×6 (07:05→21:02)
[2022-10-06] MEDS: LEVOTHYROXINE NA 25 MCG TABLET (FP) PO SCH (07:05)
[2022-10-06] MEDS: PRENATAL VITAMINS W/ FOLIC ACID TABLET (FP) PO SCH (09:48)
[2022-10-06] MEDS: NYSTATIN 100000 UNIT/GM TOPICAL OINTMENT 15 GM TUBE TP SCH ×2 (09:48→21:02)
[2022-10-06] MEDS: ASCORBIC ACID 500 MG TABLET (FP) PO SCH (09:48)
[2022-10-06] MEDS: PANTOPRAZOLE 20 MG TABLET PO SCH (09:48)
[2022-10-06] MEDS: ASPIRIN 81 MG CHEWABLE TABLETS PO SCH (09:48)
[2022-10-06] MEDS: FUROSEMIDE 40 MG TABLET (FP) PO SCH (09:48)
[2022-10-06] MEDS: COLLAGENASE CLOSTRIDIUM HIST. 30 GRAMS TUBE TP SCH (09:48)
[2022-10-06] MEDS: ARIPiprazole 5 MG TABLET PO SCH (09:48)
[2022-10-06] MEDS: DOLUTEGRAVIR SODIUM 50 MG TABLET (NON-FORMULARY) PO SCH (09:49)
[2022-10-06] MEDS: IBUPROFEN 600 MG TABLET (FP) PO PRN (13:14)
[2022-10-06] MEDS: cloNIDine HCL 0.1 MG TABLET PO PRN (16:44)
[2022-10-06] MEDS ORDERED: ATORVASTATIN CA 40 MG TABLET (FP) ONE (18:39)
[2022-10-06] MEDS: MELATONIN 5 MG TABLETS PO SCH (21:00)
[2022-10-06] MEDS: traZODone HCL 50 MG TABLET (FP) PO SCH (21:01)
[2022-10-06] MEDS: ATORVASTATIN CA 80 MG TABLET (FP) PO SCH (21:01)
[2022-10-06] MEDS: THIAMINE HCL 100 MG TABLET (FP) PO SCH (21:01)
[2022-10-07] MEDS: GABAPENTIN 300 MG CAPSULE PO SCH ×3 (06:44→21:02)
[2022-10-07] MEDS: LEVOTHYROXINE NA 25 MCG TABLET (FP) PO SCH (06:44)
[2022-10-07] MEDS: INSULIN SLIDING SCALE (NOVOLOG) 1 VIAL SQ SCH ×6 (06:46→21:03)
[2022-10-07] MEDS: ERGOCALCIFEROL (VIT D2) 50,000 UNIT (1.25 MG) CAPSULE PO SCH (09:51)
[2022-10-07] MEDS: FUROSEMIDE 40 MG TABLET (FP) PO SCH (09:52)
[2022-10-07] MEDS: PANTOPRAZOLE 20 MG TABLET PO SCH (09:52)
[2022-10-07] MEDS: PRENATAL VITAMINS W/ FOLIC ACID TABLET (FP) PO SCH (09:52)
[2022-10-07] MEDS: NYSTATIN 100000 UNIT/GM TOPICAL OINTMENT 15 GM TUBE TP SCH ×2 (09:52→21:03)
[2022-10-07] MEDS: ASCORBIC ACID 500 MG TABLET (FP) PO SCH (09:52)
[2022-10-07] MEDS: ASPIRIN 81 MG CHEWABLE TABLETS PO SCH (09:52)
[2022-10-07] MEDS: ARIPiprazole 5 MG TABLET PO SCH (09:52)
[2022-10-07] MEDS: DOLUTEGRAVIR SODIUM 50 MG TABLET (NON-FORMULARY) PO SCH (09:52)
[2022-10-07] MEDS: COLLAGENASE CLOSTRIDIUM HIST. 30 GRAMS TUBE TP SCH (09:53)
[2022-10-07] MEDS ORDERED: INSULIN SLIDING SCALE (NOVOLOG) 1 VIAL SQ ONE (11:48)
[2022-10-07] MEDS: IBUPROFEN 600 MG TABLET (FP) PO PRN (13:16)
[2022-10-07] MEDS: cloNIDine HCL 0.1 MG TABLET PO PRN (13:20)
[2022-10-07] MEDS ORDERED: ATORVASTATIN CA 40 MG TABLET (FP) ONE (18:48)
[2022-10-07] MEDS: MELATONIN 5 MG TABLETS PO SCH (21:02)
[2022-10-07] MEDS: traZODone HCL 50 MG TABLET (FP) PO SCH (21:02)
[2022-10-07] MEDS: ATORVASTATIN CA 80 MG TABLET (FP) PO SCH (21:02)
[2022-10-07] MEDS: THIAMINE HCL 100 MG TABLET (FP) PO SCH (21:02)
[2022-10-08] MEDS: LEVOTHYROXINE NA 25 MCG TABLET (FP) PO SCH (06:07)
[2022-10-08] MEDS: GABAPENTIN 300 MG CAPSULE PO SCH ×3 (06:07→21:23)
[2022-10-08] MEDS: INSULIN SLIDING SCALE (NOVOLOG) 1 VIAL SQ SCH ×6 (06:08→21:23)
[2022-10-08] MEDS: ACETAMINOPHEN 325 MG TABLET (FP) PO PRN ×2 (06:09→17:04)
[2022-10-08] MEDS: ASPIRIN 81 MG CHEWABLE TABLETS PO SCH (09:30)
[2022-10-08] MEDS: ASCORBIC ACID 500 MG TABLET (FP) PO SCH (09:30)
[2022-10-08] MEDS: PANTOPRAZOLE 20 MG TABLET PO SCH (09:30)
[2022-10-08] MEDS: ARIPiprazole 5 MG TABLET PO SCH (09:30)
[2022-10-08] MEDS: FUROSEMIDE 40 MG TABLET (FP) PO SCH (09:30)
[2022-10-08] MEDS: DOLUTEGRAVIR SODIUM 50 MG TABLET (NON-FORMULARY) PO SCH (09:31)
[2022-10-08] MEDS: NYSTATIN 100000 UNIT/GM TOPICAL OINTMENT 15 GM TUBE TP SCH ×2 (09:31→21:24)
[2022-10-08] MEDS: COLLAGENASE CLOSTRIDIUM HIST. 30 GRAMS TUBE TP SCH (09:31)
[2022-10-08] MEDS: PRENATAL VITAMINS W/ FOLIC ACID TABLET (FP) PO SCH (09:31)
[2022-10-08] MEDS: cloNIDine HCL 0.1 MG TABLET PO PRN (09:33)
[2022-10-08] MEDS ORDERED: ATORVASTATIN CA 40 MG TABLET (FP) ONE (18:54)
[2022-10-08] MEDS: MELATONIN 5 MG TABLETS PO SCH (21:23)
[2022-10-08] MEDS: THIAMINE HCL 100 MG TABLET (FP) PO SCH (21:23)
[2022-10-08] MEDS: ATORVASTATIN CA 80 MG TABLET (FP) PO SCH (21:23)
[2022-10-08] MEDS: traZODone HCL 50 MG TABLET (FP) PO SCH (21:23)
[2022-10-09] MEDS: INSULIN SLIDING SCALE (NOVOLOG) 1 VIAL SQ SCH ×6 (06:09→21:02)
[2022-10-09] MEDS: LEVOTHYROXINE NA 25 MCG TABLET (FP) PO SCH (06:10)
[2022-10-09] MEDS: GABAPENTIN 300 MG CAPSULE PO SCH ×3 (06:10→21:00)
[2022-10-09] MEDS: ACETAMINOPHEN 325 MG TABLET (FP) PO PRN (07:19)
[2022-10-09] MEDS: ASPIRIN 81 MG CHEWABLE TABLETS PO SCH (09:28)
[2022-10-09] MEDS: ASCORBIC ACID 500 MG TABLET (FP) PO SCH (09:28)
[2022-10-09] MEDS: NYSTATIN 100000 UNIT/GM TOPICAL OINTMENT 15 GM TUBE TP SCH ×2 (09:28→21:02)
[2022-10-09] MEDS: PANTOPRAZOLE 20 MG TABLET PO SCH (09:28)
[2022-10-09] MEDS: DOLUTEGRAVIR SODIUM 50 MG TABLET (NON-FORMULARY) PO SCH (09:28)
[2022-10-09] MEDS: PRENATAL VITAMINS W/ FOLIC ACID TABLET (FP) PO SCH (09:28)
[2022-10-09] MEDS: ARIPiprazole 5 MG TABLET PO SCH (09:28)
[2022-10-09] MEDS: FUROSEMIDE 40 MG TABLET (FP) PO SCH (09:28)
[2022-10-09] MEDS: COLLAGENASE CLOSTRIDIUM HIST. 30 GRAMS TUBE TP SCH (09:29)
[2022-10-09] MEDS ORDERED: INSULIN SLIDING SCALE (NOVOLOG) 1 VIAL SQ ONE (11:39)
[2022-10-09] MEDS ORDERED: ATORVASTATIN CA 40 MG TABLET (FP) ONE (18:51)
[2022-10-09] MEDS: THIAMINE HCL 100 MG TABLET (FP) PO SCH (21:01)
[2022-10-09] MEDS: traZODone HCL 50 MG TABLET (FP) PO SCH (21:01)
[2022-10-09] MEDS: MELATONIN 5 MG TABLETS PO SCH (21:01)
[2022-10-09] MEDS: ATORVASTATIN CA 80 MG TABLET (FP) PO SCH (21:01)
[2022-10-10] MEDS: GABAPENTIN 300 MG CAPSULE PO SCH ×3 (05:56→21:16)
[2022-10-10] MEDS: LEVOTHYROXINE NA 25 MCG TABLET (FP) PO SCH (06:00)
[2022-10-10] MEDS: INSULIN SLIDING SCALE (NOVOLOG) 1 VIAL SQ SCH ×6 (06:00→21:18)
[2022-10-10] MEDS: PANTOPRAZOLE 20 MG TABLET PO SCH (09:45)
[2022-10-10] MEDS: ARIPiprazole 5 MG TABLET PO SCH (09:45)
[2022-10-10] MEDS: ASCORBIC ACID 500 MG TABLET (FP) PO SCH (09:45)
[2022-10-10] MEDS: ASPIRIN 81 MG CHEWABLE TABLETS PO SCH (09:45)
[2022-10-10] MEDS: PRENATAL VITAMINS W/ FOLIC ACID TABLET (FP) PO SCH (09:45)
[2022-10-10] MEDS: COLLAGENASE CLOSTRIDIUM HIST. 30 GRAMS TUBE TP SCH (09:45)
[2022-10-10] MEDS: NYSTATIN 100000 UNIT/GM TOPICAL OINTMENT 15 GM TUBE TP SCH ×2 (09:45→21:18)
[2022-10-10] MEDS: FUROSEMIDE 40 MG TABLET (FP) PO SCH (09:45)
[2022-10-10] MEDS: DOLUTEGRAVIR SODIUM 50 MG TABLET (NON-FORMULARY) PO SCH (09:46)
[2022-10-10] MEDS: cloNIDine HCL 0.1 MG TABLET PO PRN ×2 (09:47→21:17)
[2022-10-10] MEDS ORDERED: ATORVASTATIN CA 20 MG TABLET (FP) ONE (18:40)
[2022-10-10] MEDS: MELATONIN 5 MG TABLETS PO SCH (21:16)
[2022-10-10] MEDS: THIAMINE HCL 100 MG TABLET (FP) PO SCH (21:16)
[2022-10-10] MEDS: traZODone HCL 50 MG TABLET (FP) PO SCH (21:16)
[2022-10-10] MEDS: ATORVASTATIN CA 80 MG TABLET (FP) PO SCH (21:17)
[2022-10-11] MEDS: GABAPENTIN 300 MG CAPSULE PO SCH ×3 (05:39→21:04)
[2022-10-11] MEDS: ACETAMINOPHEN 325 MG TABLET (FP) PO PRN (05:42)
[2022-10-11] MEDS ORDERED: INSULIN SLIDING SCALE (NOVOLOG) 1 VIAL SQ ONE ×2 (05:42→11:20)
[2022-10-11] MEDS: INSULIN SLIDING SCALE (NOVOLOG) 1 VIAL SQ SCH ×6 (06:53→21:04)
[2022-10-11] MEDS: LEVOTHYROXINE NA 25 MCG TABLET (FP) PO SCH (06:54)
[2022-10-11] MEDS: DOLUTEGRAVIR SODIUM 50 MG TABLET (NON-FORMULARY) PO SCH (09:39)
[2022-10-11] MEDS: ASCORBIC ACID 500 MG TABLET (FP) PO SCH (09:39)
[2022-10-11] MEDS: ASPIRIN 81 MG CHEWABLE TABLETS PO SCH (09:39)
[2022-10-11] MEDS: FUROSEMIDE 40 MG TABLET (FP) PO SCH (09:40)
[2022-10-11] MEDS: ARIPiprazole 5 MG TABLET PO SCH (09:40)
[2022-10-11] MEDS: PANTOPRAZOLE 20 MG TABLET PO SCH (09:40)
[2022-10-11] MEDS: COLLAGENASE CLOSTRIDIUM HIST. 30 GRAMS TUBE TP SCH (09:41)
[2022-10-11] MEDS: PRENATAL VITAMINS W/ FOLIC ACID TABLET (FP) PO SCH (10:14)
[2022-10-11] MEDS: IBUPROFEN 400 MG TABLET (FP) PO PRN (11:15)
[2022-10-11] MEDS: NYSTATIN 100000 UNIT/GM TOPICAL OINTMENT 15 GM TUBE TP SCH ×2 (11:20→21:04)
[2022-10-11] MEDS ORDERED: ATORVASTATIN CA 40 MG TABLET (FP) ONE (18:47)
[2022-10-11] MEDS: traZODone HCL 50 MG TABLET (FP) PO SCH (21:04)
[2022-10-11] MEDS: ATORVASTATIN CA 80 MG TABLET (FP) PO SCH (21:04)
[2022-10-11] MEDS: THIAMINE HCL 100 MG TABLET (FP) PO SCH (21:05)
[2022-10-11] MEDS: MELATONIN 5 MG TABLETS PO SCH (21:07)
[2022-10-12] MEDS: INSULIN SLIDING SCALE (NOVOLOG) 1 VIAL SQ SCH ×6 (06:26→21:04)
[2022-10-12] MEDS: LEVOTHYROXINE NA 25 MCG TABLET (FP) PO SCH (06:28)
[2022-10-12] MEDS: GABAPENTIN 300 MG CAPSULE PO SCH ×3 (06:29→21:02)
[2022-10-12] MEDS: ASPIRIN 81 MG CHEWABLE TABLETS PO SCH (09:54)
[2022-10-12] MEDS: ARIPiprazole 5 MG TABLET PO SCH (09:54)
[2022-10-12] MEDS: PRENATAL VITAMINS W/ FOLIC ACID TABLET (FP) PO SCH (09:54)
[2022-10-12] MEDS: FUROSEMIDE 40 MG TABLET (FP) PO SCH (09:54)
[2022-10-12] MEDS: ASCORBIC ACID 500 MG TABLET (FP) PO SCH (09:54)
[2022-10-12] MEDS: BISMUTH SUBSALICYLATE 262 MG/15 ML BTL PO PRN (09:54)
[2022-10-12] MEDS: cloNIDine HCL 0.1 MG TABLET PO PRN (09:54)
[2022-10-12] MEDS: PANTOPRAZOLE 20 MG TABLET PO SCH (09:54)
[2022-10-12] MEDS: NYSTATIN 100000 UNIT/GM TOPICAL OINTMENT 15 GM TUBE TP SCH ×2 (09:56→21:04)
[2022-10-12] MEDS: COLLAGENASE CLOSTRIDIUM HIST. 30 GRAMS TUBE TP SCH (09:56)
[2022-10-12] MEDS: DOLUTEGRAVIR SODIUM 50 MG TABLET (NON-FORMULARY) PO SCH (09:56)
[2022-10-12] MEDS ORDERED: ATORVASTATIN CA 40 MG TABLET (FP) ONE (18:39)
[2022-10-12] MEDS: traZODone HCL 50 MG TABLET (FP) PO SCH (21:02)
[2022-10-12] MEDS: THIAMINE HCL 100 MG TABLET (FP) PO SCH (21:03)
[2022-10-12] MEDS: MELATONIN 5 MG TABLETS PO SCH (21:03)
[2022-10-12] MEDS: IBUPROFEN 600 MG TABLET (FP) PO PRN (21:03)
[2022-10-12] MEDS: ATORVASTATIN CA 80 MG TABLET (FP) PO SCH (21:04)
[2022-10-13] MEDS: INSULIN SLIDING SCALE (NOVOLOG) 1 VIAL SQ SCH ×2 (06:42→06:44)
[2022-10-13] MEDS: LEVOTHYROXINE NA 25 MCG TABLET (FP) PO SCH (06:42)
[2022-10-13] MEDS: GABAPENTIN 300 MG CAPSULE PO SCH (06:42)
[2022-10-13] MEDS: IBUPROFEN 400 MG TABLET (FP) PO PRN (06:48)
[2022-10-13 07:09] VITALS: TEMP 97.5
[2022-10-13] MEDS: BISMUTH SUBSALICYLATE 262 MG/15 ML BTL PO PRN (07:49)
[2022-10-13 08:44] VITALS: BP 105/60; PULSE 69; RESP 16
[2022-10-13] MEDS: PANTOPRAZOLE 20 MG TABLET PO SCH (09:01)
[2022-10-13] MEDS: ASPIRIN 81 MG CHEWABLE TABLETS PO SCH (09:01)
[2022-10-13] MEDS: ASCORBIC ACID 500 MG TABLET (FP) PO SCH (09:01)
[2022-10-13] MEDS: COLLAGENASE CLOSTRIDIUM HIST. 30 GRAMS TUBE TP SCH (09:02)
[2022-10-13] MEDS: FUROSEMIDE 40 MG TABLET (FP) PO SCH (09:02)
[2022-10-13] MEDS: DOLUTEGRAVIR SODIUM 50 MG TABLET (NON-FORMULARY) PO SCH (09:02)
[2022-10-13] MEDS: NYSTATIN 100000 UNIT/GM TOPICAL OINTMENT 15 GM TUBE TP SCH (09:03)
[2022-10-13] MEDS: ARIPiprazole 5 MG TABLET PO SCH (09:03)
[2022-10-13] MEDS: PRENATAL VITAMINS W/ FOLIC ACID TABLET (FP) PO SCH (09:03)
== END 2022-10-13 09:35 | disposition home or self-care (01) | DRG 895 ==
LOC: YASAS 14:07 → Y3W 18:29
PROVIDERS: ADMIT Allergy & Immunology; ATTEND Psychiatry & Neurology Pain Medicine
PROC: HZ42ZZZ Group Counseling for Substance Abuse Treatment, Cognitive-Behavioral (ICD-10-PCS; principal; 2022-09-29)
DX: F14.20 Cocaine dependence, uncomplicated (principal); F11.20 Opioid dependence, uncomplicated; F17.210 Nicotine dependence, cigarettes, uncomplicated; F19.982 Other psychoactive substance use, unspecified with psychoactive substance-induced sleep disorder; F19.94 Other psychoactive substance use, unspecified with psychoactive substance-induced mood disorder; F20.9 Schizophrenia, unspecified; I10 Essential (primary) hypertension; E11.9 Type 2 diabetes mellitus without complications; E78.5 Hyperlipidemia, unspecified; E03.9 Hypothyroidism, unspecified; J45.909 Unspecified asthma, uncomplicated; B18.2 Chronic viral hepatitis C; Z89.421 Acquired absence of other right toe(s); Z21 Asymptomatic human immunodeficiency virus [HIV] infection status; Z86.59 Personal history of other mental and behavioral disorders; Z79.4 Long term (current) use of insulin; Z56.0 Unemployment, unspecified
CPT/HCPCS: 36415; 80053; 81003; 82962; 85027; 86780; 87635; 93005; 93010

== ENCOUNTER 2023-02-07 13:22 | Inpatient (IN) | payer OTHER ==
[2023-02-07 13:57] VITALS: BMI 25.7
[2023-02-07] MEDS: INSULIN SLIDING SCALE (NOVOLOG) 1 VIAL SQ SCH (21:45)
[2023-02-07] MEDS ORDERED: BENZOCAINE/MENTHOL (CHLORASEPTIC ) LOZENGE MM PRN (22:30)
[2023-02-07] MEDS ORDERED: BENZONATATE 200 MG CAPSULE PO PRN (22:30)
[2023-02-07] MEDS ORDERED: POLYETHYLENE GLYCOL (HEALTHYLAX) 3350 17 GM PACKET PO PRN (22:30)
[2023-02-07] MEDS ORDERED: COLLOIDAL OATMEAL 1 BAR EACH TP PRN (22:30)
[2023-02-07] MEDS ORDERED: MAGNESIUM HYDROX 2400MG/30ML ORAL SUSPENSION 30 ML CUP PO PRN (22:30)
[2023-02-07] MEDS ORDERED: LOPERAMIDE HCL 2 MG CAPSULE PO PRN (22:30)
[2023-02-07] MEDS ORDERED: NALOXONE HCL 0.4 MG/ML VIAL IM PRN (22:30)
[2023-02-07] MEDS ORDERED: NALOXONE HCL (KLOXXADO) 8 MG SPRAY NS PRN (22:30)
[2023-02-07] MEDS ORDERED: guaiFENesin 600 MG TABLET.ER (FP) PO PRN (22:30)
[2023-02-07] MEDS: MELATONIN 5 MG TABLETS PO SCH (22:45)
[2023-02-08] MEDS: INSULIN SLIDING SCALE (NOVOLOG) 1 VIAL SQ SCH ×4 (06:39→21:01)
[2023-02-08] MEDS: IBUPROFEN 600 MG TABLET (FP) PO PRN (06:41)
[2023-02-08] MEDS: PRENATAL VITAMINS W/ FOLIC ACID TABLET (FP) PO SCH (09:55)
[2023-02-08 10:47] LABS: POTASSIUM 3.6 mmol/L (3.5-5.1)
[2023-02-08 11:15] LABS: BLOOD UREA NITROGEN 11.6 mg/dL (7-18); CALCIUM 9.7 mg/dL (8.5-10.1)
[2023-02-08 11:16] LABS: ALBUMIN 3.2 g/dl (3.4-5.0)
[2023-02-08 11:20] LABS: BILIRUBIN,TOTAL 0.4 mg/dL (0.2-1)
[2023-02-08] MEDS ORDERED: NYSTATIN 100000 UNIT/GM TOPICAL OINTMENT 15 GM TUBE TP PRN (13:09)
[2023-02-08] MEDS ORDERED: PATIENT'S OWN MEDICATION (NON-FORMULARY) (Sitagliptin Phos/Metformin Hcl [Janumet 50-1,000 PO SCH (13:15)
[2023-02-08] MEDS ORDERED: ALBUTEROL SO4 HFA INHALER IH PRN (13:15)
[2023-02-08] MEDS ORDERED: PATIENT'S OWN MEDICATION (NON-FORMULARY) (Dolutegravir Sodium/Lamivudine [Dovato 50-300 Mg PO SCH (13:15)
[2023-02-08] MEDS: ASPIRIN 81 MG CHEWABLE TABLETS PO SCH (14:17)
[2023-02-08] MEDS: LEVOTHYROXINE NA 25 MCG TABLET (FP) PO SCH (14:17)
[2023-02-08] MEDS: GABAPENTIN 300 MG CAPSULE PO SCH ×2 (14:18→21:01)
[2023-02-08] MEDS: PANTOPRAZOLE 20 MG TABLET PO SCH (14:18)
[2023-02-08] MEDS: FUROSEMIDE 40 MG TABLET (FP) PO SCH (14:18)
[2023-02-08 15:27] LABS: HEMATOCRIT 34.7 % (35.4-49); HEMOGLOBIN 11.3 GM/dL (11.7-16.9); MCHC 32.7 g/dl (32.0-35.9); MEAN CELL VOLUME 91.8 fl (80-96); MEAN PLT VOLUME 8.2 fl (7.5-11.1); PLATELET COUNT 100 10^3/uL (134-434); RBC 3.78 M/mm3 (4.00-5.60); RDW 15.4 % (11.9-15.9); WHITE BLOOD COUNT 3.4 K/mm3 (4.0-10.0)
[2023-02-08] MEDS: metFORMIN HCL 500 MG TABLET (FP) PO SCH (17:09)
[2023-02-08] MEDS: ASCORBIC ACID 500 MG TABLET (FP) PO SCH (17:09)
[2023-02-08] MEDS: DOLUTEGRAVIR SODIUM 50 MG TABLET (NON-FORMULARY) PO SCH (17:09)
[2023-02-08] MEDS: sitaGLIPtin PHOSPHATE 50 MG TABLET PO SCH (17:10)
[2023-02-08] MEDS ORDERED: ATORVASTATIN CA 40 MG TABLET (FP) ONE (21:00)
[2023-02-08] MEDS: MELATONIN 5 MG TABLETS PO SCH (21:00)
[2023-02-08] MEDS: THIAMINE HCL 100 MG TABLET (FP) PO SCH (21:00)
[2023-02-08] MEDS: ATORVASTATIN CA 80 MG TABLET (FP) PO SCH (21:01)
[2023-02-09] MEDS: INSULIN SLIDING SCALE (NOVOLOG) 1 VIAL SQ SCH ×4 (06:46→21:19)
[2023-02-09] MEDS: sitaGLIPtin PHOSPHATE 50 MG TABLET PO SCH ×2 (06:48→16:09)
[2023-02-09] MEDS: GABAPENTIN 300 MG CAPSULE PO SCH ×3 (06:48→21:18)
[2023-02-09] MEDS: LEVOTHYROXINE NA 25 MCG TABLET (FP) PO SCH (06:48)
[2023-02-09] MEDS: metFORMIN HCL 500 MG TABLET (FP) PO SCH ×2 (06:48→16:09)
[2023-02-09] MEDS: DOLUTEGRAVIR SODIUM 50 MG TABLET (NON-FORMULARY) PO SCH (07:02)
[2023-02-09] MEDS: ASCORBIC ACID 500 MG TABLET (FP) PO SCH (09:42)
[2023-02-09] MEDS: ASPIRIN 81 MG CHEWABLE TABLETS PO SCH (09:42)
[2023-02-09] MEDS: BISACODYL 5 MG TABLET.DR (FP) PO SCH (09:42)
[2023-02-09] MEDS: PANTOPRAZOLE 20 MG TABLET PO SCH (09:42)
[2023-02-09] MEDS: FUROSEMIDE 40 MG TABLET (FP) PO SCH (09:42)
[2023-02-09] MEDS: PRENATAL VITAMINS W/ FOLIC ACID TABLET (FP) PO SCH (09:42)
[2023-02-09] MEDS: ERGOCALCIFEROL (VIT D2) 50,000 UNIT (1.25 MG) CAPSULE PO SCH (09:44)
[2023-02-09] MEDS: IBUPROFEN 600 MG TABLET (FP) PO PRN ×2 (09:46→21:18)
[2023-02-09 11:09] LABS: URINE APPEARANCE CLEAR; URINE BILIRUBIN NEGATIVE (NEGATIVE); URINE COLOR YELLOW; URINE GLUCOSE (UA) TRACE (NEGATIVE); URINE KETONE NEGATIVE (NEGATIVE); URINE LEUK ESTERASE NEGATIVE (NEGATIVE); URINE NITRITE NEGATIVE (NEGATIVE); URINE PROTEIN NEGATIVE (NEGATIVE); URINE UROBILINOGEN 0.2 mg/dL (0.2-1.0)
[2023-02-09] MEDS ORDERED: INSULIN SLIDING SCALE (NOVOLOG) 1 VIAL SQ ONE (11:43)
[2023-02-09] MEDS ORDERED: ATORVASTATIN CA 40 MG TABLET (FP) ONE (18:41)
[2023-02-09] MEDS: MELATONIN 5 MG TABLETS PO SCH (21:17)
[2023-02-09] MEDS: THIAMINE HCL 100 MG TABLET (FP) PO SCH (21:17)
[2023-02-09] MEDS: ATORVASTATIN CA 80 MG TABLET (FP) PO SCH (21:18)
[2023-02-10] MEDS: INSULIN SLIDING SCALE (NOVOLOG) 1 VIAL SQ SCH ×4 (06:40→21:07)
[2023-02-10] MEDS: LEVOTHYROXINE NA 25 MCG TABLET (FP) PO SCH (06:42)
[2023-02-10] MEDS: metFORMIN HCL 500 MG TABLET (FP) PO SCH ×2 (06:42→16:18)
[2023-02-10] MEDS: sitaGLIPtin PHOSPHATE 50 MG TABLET PO SCH ×2 (06:42→16:18)
[2023-02-10] MEDS: GABAPENTIN 300 MG CAPSULE PO SCH ×3 (06:42→21:05)
[2023-02-10] MEDS: IBUPROFEN 600 MG TABLET (FP) PO PRN ×2 (06:43→16:18)
[2023-02-10] MEDS: DOLUTEGRAVIR SODIUM 50 MG TABLET (NON-FORMULARY) PO SCH (07:01)
[2023-02-10] MEDS: BISACODYL 5 MG TABLET.DR (FP) PO SCH (09:12)
[2023-02-10] MEDS: ASCORBIC ACID 500 MG TABLET (FP) PO SCH (09:12)
[2023-02-10] MEDS: ASPIRIN 81 MG CHEWABLE TABLETS PO SCH (09:12)
[2023-02-10] MEDS: PANTOPRAZOLE 20 MG TABLET PO SCH (09:12)
[2023-02-10] MEDS: PRENATAL VITAMINS W/ FOLIC ACID TABLET (FP) PO SCH (09:12)
[2023-02-10] MEDS: FUROSEMIDE 40 MG TABLET (FP) PO SCH (09:12)
[2023-02-10] MEDS: HYDROCORTISONE 0.5% TOPICAL CREAM 30 GM TUBE TP PRN (13:49)
[2023-02-10] MEDS ORDERED: ATORVASTATIN CA 40 MG TABLET (FP) ONE (18:52)
[2023-02-10] MEDS: MELATONIN 5 MG TABLETS PO SCH (21:05)
[2023-02-10] MEDS: THIAMINE HCL 100 MG TABLET (FP) PO SCH (21:05)
[2023-02-10] MEDS: IBUPROFEN 400 MG TABLET (FP) PO PRN (21:06)
[2023-02-10] MEDS: ATORVASTATIN CA 80 MG TABLET (FP) PO SCH (21:06)
[2023-02-11] MEDS: INSULIN SLIDING SCALE (NOVOLOG) 1 VIAL SQ SCH ×4 (06:35→21:48)
[2023-02-11] MEDS: IBUPROFEN 600 MG TABLET (FP) PO PRN ×2 (06:36→16:41)
[2023-02-11] MEDS: GABAPENTIN 300 MG CAPSULE PO SCH ×3 (06:37→21:41)
[2023-02-11] MEDS: LEVOTHYROXINE NA 25 MCG TABLET (FP) PO SCH (06:37)
[2023-02-11] MEDS: HYDROCORTISONE 0.5% TOPICAL CREAM 30 GM TUBE TP PRN (06:38)
[2023-02-11] MEDS: sitaGLIPtin PHOSPHATE 50 MG TABLET PO SCH ×2 (06:38→16:39)
[2023-02-11] MEDS: metFORMIN HCL 500 MG TABLET (FP) PO SCH ×2 (06:39→16:39)
[2023-02-11] MEDS: DOLUTEGRAVIR SODIUM 50 MG TABLET (NON-FORMULARY) PO SCH (07:02)
[2023-02-11] MEDS: PRENATAL VITAMINS W/ FOLIC ACID TABLET (FP) PO SCH (10:20)
[2023-02-11] MEDS: ASPIRIN 81 MG CHEWABLE TABLETS PO SCH (10:20)
[2023-02-11] MEDS: ASCORBIC ACID 500 MG TABLET (FP) PO SCH (10:21)
[2023-02-11] MEDS: FUROSEMIDE 40 MG TABLET (FP) PO SCH (10:21)
[2023-02-11] MEDS: PANTOPRAZOLE 20 MG TABLET PO SCH (10:21)
[2023-02-11] MEDS: BISACODYL 5 MG TABLET.DR (FP) PO SCH (10:21)
[2023-02-11] MEDS ORDERED: ATORVASTATIN CA 40 MG TABLET (FP) ONE (20:29)
[2023-02-11] MEDS: ATORVASTATIN CA 80 MG TABLET (FP) PO SCH (21:41)
[2023-02-11] MEDS: THIAMINE HCL 100 MG TABLET (FP) PO SCH (21:41)
[2023-02-11] MEDS: MELATONIN 5 MG TABLETS PO SCH (21:41)
[2023-02-12] MEDS: IBUPROFEN 600 MG TABLET (FP) PO PRN ×2 (05:06→10:55)
[2023-02-12] MEDS: GABAPENTIN 300 MG CAPSULE PO SCH ×3 (05:49→21:02)
[2023-02-12] MEDS: metFORMIN HCL 500 MG TABLET (FP) PO SCH ×2 (06:42→16:19)
[2023-02-12] MEDS: LEVOTHYROXINE NA 25 MCG TABLET (FP) PO SCH (06:42)
[2023-02-12] MEDS: sitaGLIPtin PHOSPHATE 50 MG TABLET PO SCH ×2 (06:43→16:19)
[2023-02-12] MEDS: INSULIN SLIDING SCALE (NOVOLOG) 1 VIAL SQ SCH ×4 (06:44→21:05)
[2023-02-12] MEDS: DOLUTEGRAVIR SODIUM 50 MG TABLET (NON-FORMULARY) PO SCH (07:05)
[2023-02-12] MEDS: BISACODYL 5 MG TABLET.DR (FP) PO SCH (10:53)
[2023-02-12] MEDS: FUROSEMIDE 40 MG TABLET (FP) PO SCH (10:53)
[2023-02-12] MEDS: PRENATAL VITAMINS W/ FOLIC ACID TABLET (FP) PO SCH (10:53)
[2023-02-12] MEDS: PANTOPRAZOLE 20 MG TABLET PO SCH (10:53)
[2023-02-12] MEDS: ASPIRIN 81 MG CHEWABLE TABLETS PO SCH (10:53)
[2023-02-12] MEDS: ASCORBIC ACID 500 MG TABLET (FP) PO SCH (10:53)
[2023-02-12] MEDS ORDERED: ATORVASTATIN CA 40 MG TABLET (FP) ONE (18:53)
[2023-02-12] MEDS: ATORVASTATIN CA 80 MG TABLET (FP) PO SCH (21:02)
[2023-02-12] MEDS: MELATONIN 5 MG TABLETS PO SCH (21:02)
[2023-02-12] MEDS: THIAMINE HCL 100 MG TABLET (FP) PO SCH (21:02)
[2023-02-13] MEDS: INSULIN SLIDING SCALE (NOVOLOG) 1 VIAL SQ SCH ×4 (06:19→21:26)
[2023-02-13] MEDS: metFORMIN HCL 500 MG TABLET (FP) PO SCH ×2 (06:21→16:13)
[2023-02-13] MEDS: GABAPENTIN 300 MG CAPSULE PO SCH ×3 (06:21→21:24)
[2023-02-13] MEDS: sitaGLIPtin PHOSPHATE 50 MG TABLET PO SCH ×2 (06:21→16:13)
[2023-02-13] MEDS: IBUPROFEN 600 MG TABLET (FP) PO PRN ×2 (06:21→21:25)
[2023-02-13] MEDS: LEVOTHYROXINE NA 25 MCG TABLET (FP) PO SCH (06:21)
[2023-02-13] MEDS: DOLUTEGRAVIR SODIUM 50 MG TABLET (NON-FORMULARY) PO SCH (07:07)
[2023-02-13] MEDS: PANTOPRAZOLE 20 MG TABLET PO SCH (09:58)
[2023-02-13] MEDS: ASCORBIC ACID 500 MG TABLET (FP) PO SCH (09:58)
[2023-02-13] MEDS: ASPIRIN 81 MG CHEWABLE TABLETS PO SCH (09:58)
[2023-02-13] MEDS: PRENATAL VITAMINS W/ FOLIC ACID TABLET (FP) PO SCH (09:58)
[2023-02-13] MEDS: FUROSEMIDE 40 MG TABLET (FP) PO SCH (09:58)
[2023-02-13] MEDS: BISACODYL 5 MG TABLET.DR (FP) PO SCH (09:59)
[2023-02-13] MEDS: MELATONIN 5 MG TABLETS PO SCH (21:23)
[2023-02-13] MEDS: THIAMINE HCL 100 MG TABLET (FP) PO SCH (21:23)
[2023-02-13] MEDS ORDERED: ATORVASTATIN CA 40 MG TABLET (FP) ONE (21:24)
[2023-02-13] MEDS: ATORVASTATIN CA 80 MG TABLET (FP) PO SCH (21:24)
[2023-02-14] MEDS: INSULIN SLIDING SCALE (NOVOLOG) 1 VIAL SQ SCH ×4 (06:44→21:11)
[2023-02-14] MEDS: IBUPROFEN 600 MG TABLET (FP) PO PRN ×2 (06:46→11:47)
[2023-02-14] MEDS: sitaGLIPtin PHOSPHATE 50 MG TABLET PO SCH ×2 (06:47→16:39)
[2023-02-14] MEDS: LEVOTHYROXINE NA 25 MCG TABLET (FP) PO SCH (06:47)
[2023-02-14] MEDS: GABAPENTIN 300 MG CAPSULE PO SCH ×3 (06:47→21:10)
[2023-02-14] MEDS: metFORMIN HCL 500 MG TABLET (FP) PO SCH ×2 (06:47→16:39)
[2023-02-14] MEDS: HYDROCORTISONE 0.5% TOPICAL CREAM 30 GM TUBE TP PRN (06:49)
[2023-02-14] MEDS: DOLUTEGRAVIR SODIUM 50 MG TABLET (NON-FORMULARY) PO SCH (07:11)
[2023-02-14] MEDS: BISACODYL 5 MG TABLET.DR (FP) PO SCH (10:53)
[2023-02-14] MEDS: PRENATAL VITAMINS W/ FOLIC ACID TABLET (FP) PO SCH (10:53)
[2023-02-14] MEDS: ASPIRIN 81 MG CHEWABLE TABLETS PO SCH ×2 (10:53)
[2023-02-14] MEDS: FUROSEMIDE 40 MG TABLET (FP) PO SCH ×2 (10:53)
[2023-02-14] MEDS: ASCORBIC ACID 500 MG TABLET (FP) PO SCH (10:54)
[2023-02-14] MEDS: PANTOPRAZOLE 20 MG TABLET PO SCH (10:54)
[2023-02-14] MEDS: ARIPiprazole 5 MG TABLET PO SCH (12:00)
[2023-02-14] MEDS: ATORVASTATIN CA 80 MG TABLET (FP) PO SCH (21:10)
[2023-02-14] MEDS: MELATONIN 5 MG TABLETS PO SCH (21:10)
[2023-02-14] MEDS: THIAMINE HCL 100 MG TABLET (FP) PO SCH (21:10)
[2023-02-15] MEDS: LEVOTHYROXINE NA 25 MCG TABLET (FP) PO SCH (06:07)
[2023-02-15] MEDS: GABAPENTIN 300 MG CAPSULE PO SCH ×3 (06:07→21:07)
[2023-02-15] MEDS: IBUPROFEN 600 MG TABLET (FP) PO PRN ×3 (06:10→21:07)
[2023-02-15] MEDS: metFORMIN HCL 500 MG TABLET (FP) PO SCH ×2 (06:11→16:18)
[2023-02-15] MEDS: sitaGLIPtin PHOSPHATE 50 MG TABLET PO SCH ×2 (06:12→16:18)
[2023-02-15] MEDS: INSULIN SLIDING SCALE (NOVOLOG) 1 VIAL SQ SCH ×4 (06:22→21:40)
[2023-02-15] MEDS: DOLUTEGRAVIR SODIUM 50 MG TABLET (NON-FORMULARY) PO SCH (07:38)
[2023-02-15] MEDS: PRENATAL VITAMINS W/ FOLIC ACID TABLET (FP) PO SCH (10:01)
[2023-02-15] MEDS: ASCORBIC ACID 500 MG TABLET (FP) PO SCH (10:01)
[2023-02-15] MEDS: BISACODYL 5 MG TABLET.DR (FP) PO SCH (10:01)
[2023-02-15] MEDS: PANTOPRAZOLE 20 MG TABLET PO SCH (10:01)
[2023-02-15] MEDS: FUROSEMIDE 40 MG TABLET (FP) PO SCH (10:01)
[2023-02-15] MEDS: ASPIRIN 81 MG CHEWABLE TABLETS PO SCH (10:01)
[2023-02-15] MEDS: ARIPiprazole 5 MG TABLET PO SCH (10:03)
[2023-02-15] MEDS ORDERED: ATORVASTATIN CA 40 MG TABLET (FP) ONE (18:51)
[2023-02-15] MEDS: MELATONIN 5 MG TABLETS PO SCH (21:07)
[2023-02-15] MEDS: ATORVASTATIN CA 80 MG TABLET (FP) PO SCH (21:07)
[2023-02-15] MEDS: THIAMINE HCL 100 MG TABLET (FP) PO SCH (21:07)
[2023-02-15] MEDS: AMMONIUM LACTATE 12% LOTION 225 GM BOTTLE TP PRN (21:09)
[2023-02-16] MEDS: metFORMIN HCL 500 MG TABLET (FP) PO SCH ×2 (06:17→16:23)
[2023-02-16] MEDS: INSULIN SLIDING SCALE (NOVOLOG) 1 VIAL SQ SCH ×4 (06:17→21:27)
[2023-02-16] MEDS: sitaGLIPtin PHOSPHATE 50 MG TABLET PO SCH ×2 (06:18→16:23)
[2023-02-16] MEDS: GABAPENTIN 300 MG CAPSULE PO SCH ×3 (06:18→21:26)
[2023-02-16] MEDS: LEVOTHYROXINE NA 25 MCG TABLET (FP) PO SCH (06:18)
[2023-02-16] MEDS: IBUPROFEN 600 MG TABLET (FP) PO PRN ×2 (06:18→21:26)
[2023-02-16] MEDS: DOLUTEGRAVIR SODIUM 50 MG TABLET (NON-FORMULARY) PO SCH (07:02)
[2023-02-16] MEDS: ARIPiprazole 5 MG TABLET PO SCH ×2 (11:04→11:22)
[2023-02-16] MEDS: ERGOCALCIFEROL (VIT D2) 50,000 UNIT (1.25 MG) CAPSULE PO SCH (11:04)
[2023-02-16] MEDS: ASPIRIN 81 MG CHEWABLE TABLETS PO SCH ×2 (11:04→11:22)
[2023-02-16] MEDS: PRENATAL VITAMINS W/ FOLIC ACID TABLET (FP) PO SCH ×2 (11:05→11:29)
[2023-02-16] MEDS: ASCORBIC ACID 500 MG TABLET (FP) PO SCH ×2 (11:05→11:29)
[2023-02-16] MEDS: BISACODYL 5 MG TABLET.DR (FP) PO SCH ×2 (11:05→11:22)
[2023-02-16] MEDS: PANTOPRAZOLE 20 MG TABLET PO SCH ×2 (11:05→11:33)
[2023-02-16] MEDS: FUROSEMIDE 40 MG TABLET (FP) PO SCH ×2 (11:05→11:29)
[2023-02-16] MEDS ORDERED: ATORVASTATIN CA 40 MG TABLET (FP) ONE (18:50)
[2023-02-16] MEDS: MAG HYDROX/AL HYDROX/SIMETH 30 ML UNIT-DOSE CUP PO PRN (18:51)
[2023-02-16] MEDS: THIAMINE HCL 100 MG TABLET (FP) PO SCH (21:26)
[2023-02-16] MEDS: ATORVASTATIN CA 80 MG TABLET (FP) PO SCH (21:26)
[2023-02-16] MEDS: MELATONIN 5 MG TABLETS PO SCH (21:26)
[2023-02-17] MEDS: INSULIN SLIDING SCALE (NOVOLOG) 1 VIAL SQ SCH ×4 (06:22→21:26)
[2023-02-17] MEDS: sitaGLIPtin PHOSPHATE 50 MG TABLET PO SCH ×2 (06:23→16:20)
[2023-02-17] MEDS: LEVOTHYROXINE NA 25 MCG TABLET (FP) PO SCH (06:23)
[2023-02-17] MEDS: metFORMIN HCL 500 MG TABLET (FP) PO SCH ×2 (06:23→16:20)
[2023-02-17] MEDS: GABAPENTIN 300 MG CAPSULE PO SCH ×3 (06:23→21:24)
[2023-02-17] MEDS: IBUPROFEN 600 MG TABLET (FP) PO PRN ×2 (06:24→21:24)
[2023-02-17] MEDS: DOLUTEGRAVIR SODIUM 50 MG TABLET (NON-FORMULARY) PO SCH (07:03)
[2023-02-17] MEDS: BISACODYL 5 MG TABLET.DR (FP) PO SCH ×2 (11:25→11:27)
[2023-02-17] MEDS: ASPIRIN 81 MG CHEWABLE TABLETS PO SCH (11:26)
[2023-02-17] MEDS: ARIPiprazole 5 MG TABLET PO SCH (11:26)
[2023-02-17] MEDS: ASCORBIC ACID 500 MG TABLET (FP) PO SCH (11:26)
[2023-02-17] MEDS: FUROSEMIDE 40 MG TABLET (FP) PO SCH (11:26)
[2023-02-17] MEDS: PANTOPRAZOLE 20 MG TABLET PO SCH (11:26)
[2023-02-17] MEDS: PRENATAL VITAMINS W/ FOLIC ACID TABLET (FP) PO SCH (11:26)
[2023-02-17] MEDS ORDERED: ATORVASTATIN CA 40 MG TABLET (FP) ONE (19:15)
[2023-02-17] MEDS: ATORVASTATIN CA 80 MG TABLET (FP) PO SCH (21:24)
[2023-02-17] MEDS: THIAMINE HCL 100 MG TABLET (FP) PO SCH (21:24)
[2023-02-17] MEDS: MELATONIN 5 MG TABLETS PO SCH (21:24)
[2023-02-18] MEDS: GABAPENTIN 300 MG CAPSULE PO SCH ×3 (05:54→21:00)
[2023-02-18] MEDS: metFORMIN HCL 500 MG TABLET (FP) PO SCH ×2 (06:00→16:27)
[2023-02-18] MEDS: sitaGLIPtin PHOSPHATE 50 MG TABLET PO SCH ×2 (06:01→16:28)
[2023-02-18] MEDS: LEVOTHYROXINE NA 25 MCG TABLET (FP) PO SCH (06:01)
[2023-02-18] MEDS: INSULIN SLIDING SCALE (NOVOLOG) 1 VIAL SQ SCH ×4 (06:01→21:01)
[2023-02-18] MEDS: ACETAMINOPHEN 325 MG TABLET (FP) PO PRN (06:58)
[2023-02-18] MEDS: DOLUTEGRAVIR SODIUM 50 MG TABLET (NON-FORMULARY) PO SCH (07:00)
[2023-02-18] MEDS: ARIPiprazole 5 MG TABLET PO SCH (10:09)
[2023-02-18] MEDS: PRENATAL VITAMINS W/ FOLIC ACID TABLET (FP) PO SCH (10:09)
[2023-02-18] MEDS: ASPIRIN 81 MG CHEWABLE TABLETS PO SCH (10:10)
[2023-02-18] MEDS: FUROSEMIDE 40 MG TABLET (FP) PO SCH (10:10)
[2023-02-18] MEDS: PANTOPRAZOLE 20 MG TABLET PO SCH (10:10)
[2023-02-18] MEDS: BISACODYL 5 MG TABLET.DR (FP) PO SCH (10:11)
[2023-02-18] MEDS: ASCORBIC ACID 500 MG TABLET (FP) PO SCH (10:13)
[2023-02-18] MEDS ORDERED: INSULIN SLIDING SCALE (NOVOLOG) 1 VIAL SQ ONE (11:50)
[2023-02-18] MEDS ORDERED: ATORVASTATIN CA 40 MG TABLET (FP) ONE (18:49)
[2023-02-18] MEDS: ATORVASTATIN CA 80 MG TABLET (FP) PO SCH (21:00)
[2023-02-18] MEDS: THIAMINE HCL 100 MG TABLET (FP) PO SCH (21:00)
[2023-02-18] MEDS: MELATONIN 5 MG TABLETS PO SCH (21:00)
[2023-02-19] MEDS: LEVOTHYROXINE NA 25 MCG TABLET (FP) PO SCH (05:59)
[2023-02-19] MEDS: metFORMIN HCL 500 MG TABLET (FP) PO SCH ×2 (06:00→16:39)
[2023-02-19] MEDS: GABAPENTIN 300 MG CAPSULE PO SCH ×3 (06:00→21:45)
[2023-02-19] MEDS: sitaGLIPtin PHOSPHATE 50 MG TABLET PO SCH ×2 (06:00→16:40)
[2023-02-19] MEDS: INSULIN SLIDING SCALE (NOVOLOG) 1 VIAL SQ SCH ×4 (06:00→21:46)
[2023-02-19] MEDS: IBUPROFEN 600 MG TABLET (FP) PO PRN ×2 (06:53→21:47)
[2023-02-19] MEDS: DOLUTEGRAVIR SODIUM 50 MG TABLET (NON-FORMULARY) PO SCH (07:06)
[2023-02-19] MEDS: BISACODYL 5 MG TABLET.DR (FP) PO SCH (09:50)
[2023-02-19] MEDS: PRENATAL VITAMINS W/ FOLIC ACID TABLET (FP) PO SCH (09:50)
[2023-02-19] MEDS: ARIPiprazole 5 MG TABLET PO SCH (09:50)
[2023-02-19] MEDS: PANTOPRAZOLE 20 MG TABLET PO SCH (09:51)
[2023-02-19] MEDS: ASCORBIC ACID 500 MG TABLET (FP) PO SCH (09:51)
[2023-02-19] MEDS: ASPIRIN 81 MG CHEWABLE TABLETS PO SCH (09:51)
[2023-02-19] MEDS: FUROSEMIDE 40 MG TABLET (FP) PO SCH (09:51)
[2023-02-19] MEDS: ATORVASTATIN CA 80 MG TABLET (FP) PO SCH (21:45)
[2023-02-19] MEDS: MELATONIN 5 MG TABLETS PO SCH (21:46)
[2023-02-19] MEDS: THIAMINE HCL 100 MG TABLET (FP) PO SCH (21:46)
[2023-02-20] MEDS: LEVOTHYROXINE NA 25 MCG TABLET (FP) PO SCH (06:11)
[2023-02-20] MEDS: IBUPROFEN 600 MG TABLET (FP) PO PRN (06:12)
[2023-02-20] MEDS: metFORMIN HCL 500 MG TABLET (FP) PO SCH ×2 (06:12→16:38)
[2023-02-20] MEDS: sitaGLIPtin PHOSPHATE 50 MG TABLET PO SCH ×2 (06:12→16:39)
[2023-02-20] MEDS: GABAPENTIN 300 MG CAPSULE PO SCH ×3 (06:12→21:11)
[2023-02-20] MEDS: INSULIN SLIDING SCALE (NOVOLOG) 1 VIAL SQ SCH ×4 (06:14→21:52)
[2023-02-20] MEDS: DOLUTEGRAVIR SODIUM 50 MG TABLET (NON-FORMULARY) PO SCH (07:02)
[2023-02-20] MEDS: PRENATAL VITAMINS W/ FOLIC ACID TABLET (FP) PO SCH (10:24)
[2023-02-20] MEDS: ASPIRIN 81 MG CHEWABLE TABLETS PO SCH (10:24)
[2023-02-20] MEDS: BISACODYL 5 MG TABLET.DR (FP) PO SCH (10:25)
[2023-02-20] MEDS: PANTOPRAZOLE 20 MG TABLET PO SCH (10:25)
[2023-02-20] MEDS: ASCORBIC ACID 500 MG TABLET (FP) PO SCH (10:25)
[2023-02-20] MEDS: FUROSEMIDE 40 MG TABLET (FP) PO SCH (10:25)
[2023-02-20] MEDS: ARIPiprazole 5 MG TABLET PO SCH (10:25)
[2023-02-20] MEDS: MELATONIN 5 MG TABLETS PO SCH (21:10)
[2023-02-20] MEDS: THIAMINE HCL 100 MG TABLET (FP) PO SCH (21:10)
[2023-02-20] MEDS: ATORVASTATIN CA 80 MG TABLET (FP) PO SCH (21:11)
[2023-02-20] MEDS: ACETAMINOPHEN 325 MG TABLET (FP) PO PRN (23:33)
[2023-02-21] MEDS: INSULIN SLIDING SCALE (NOVOLOG) 1 VIAL SQ SCH ×4 (06:23→21:19)
[2023-02-21] MEDS: IBUPROFEN 400 MG TABLET (FP) PO PRN (06:25)
[2023-02-21] MEDS: GABAPENTIN 300 MG CAPSULE PO SCH ×3 (06:26→21:17)
[2023-02-21] MEDS: LEVOTHYROXINE NA 25 MCG TABLET (FP) PO SCH (06:26)
[2023-02-21] MEDS: sitaGLIPtin PHOSPHATE 50 MG TABLET PO SCH ×2 (06:26→16:25)
[2023-02-21] MEDS: metFORMIN HCL 500 MG TABLET (FP) PO SCH ×2 (06:26→16:25)
[2023-02-21] MEDS: DOLUTEGRAVIR SODIUM 50 MG TABLET (NON-FORMULARY) PO SCH (07:05)
[2023-02-21] MEDS: BISACODYL 5 MG TABLET.DR (FP) PO SCH (09:43)
[2023-02-21] MEDS: PRENATAL VITAMINS W/ FOLIC ACID TABLET (FP) PO SCH (09:43)
[2023-02-21] MEDS: ASPIRIN 81 MG CHEWABLE TABLETS PO SCH (09:43)
[2023-02-21] MEDS: ASCORBIC ACID 500 MG TABLET (FP) PO SCH (09:43)
[2023-02-21] MEDS: FUROSEMIDE 40 MG TABLET (FP) PO SCH (09:43)
[2023-02-21] MEDS: PANTOPRAZOLE 20 MG TABLET PO SCH (09:45)
[2023-02-21] MEDS: ARIPiprazole 5 MG TABLET PO SCH (11:36)
[2023-02-21] MEDS ORDERED: INSULIN SLIDING SCALE (NOVOLOG) 1 VIAL SQ ONE (11:38)
[2023-02-21] MEDS: CLINDAMYCIN PHOSPHATE 1% TOPICAL GEL 30 GM TUBE TP SCH ×2 (12:43→21:19)
[2023-02-21] MEDS: IBUPROFEN 600 MG TABLET (FP) PO PRN (16:26)
[2023-02-21] MEDS: AMMONIUM LACTATE 12% LOTION 225 GM BOTTLE TP PRN (16:27)
[2023-02-21] MEDS ORDERED: ATORVASTATIN CA 40 MG TABLET (FP) ONE (19:09)
[2023-02-21] MEDS: THIAMINE HCL 100 MG TABLET (FP) PO SCH (21:17)
[2023-02-21] MEDS: MELATONIN 5 MG TABLETS PO SCH (21:17)
[2023-02-21] MEDS: ACETAMINOPHEN 325 MG TABLET (FP) PO PRN (21:18)
[2023-02-21] MEDS: ATORVASTATIN CA 80 MG TABLET (FP) PO SCH (21:18)
[2023-02-22] MEDS: INSULIN SLIDING SCALE (NOVOLOG) 1 VIAL SQ SCH ×4 (06:09→21:17)
[2023-02-22] MEDS: LEVOTHYROXINE NA 25 MCG TABLET (FP) PO SCH (06:10)
[2023-02-22] MEDS: metFORMIN HCL 500 MG TABLET (FP) PO SCH ×2 (06:10→16:23)
[2023-02-22] MEDS: sitaGLIPtin PHOSPHATE 50 MG TABLET PO SCH ×2 (06:10→16:23)
[2023-02-22] MEDS: GABAPENTIN 300 MG CAPSULE PO SCH ×3 (06:10→21:13)
[2023-02-22] MEDS: IBUPROFEN 600 MG TABLET (FP) PO PRN ×2 (06:11→11:57)
[2023-02-22] MEDS: DOLUTEGRAVIR SODIUM 50 MG TABLET (NON-FORMULARY) PO SCH (07:04)
[2023-02-22] MEDS: ASPIRIN 81 MG CHEWABLE TABLETS PO SCH (10:06)
[2023-02-22] MEDS: PANTOPRAZOLE 20 MG TABLET PO SCH (10:06)
[2023-02-22] MEDS: BISACODYL 5 MG TABLET.DR (FP) PO SCH (10:06)
[2023-02-22] MEDS: ARIPiprazole 5 MG TABLET PO SCH (10:06)
[2023-02-22] MEDS: ASCORBIC ACID 500 MG TABLET (FP) PO SCH (10:06)
[2023-02-22] MEDS: FUROSEMIDE 40 MG TABLET (FP) PO SCH (10:06)
[2023-02-22] MEDS: PRENATAL VITAMINS W/ FOLIC ACID TABLET (FP) PO SCH (10:06)
[2023-02-22] MEDS: CLINDAMYCIN PHOSPHATE 1% TOPICAL GEL 30 GM TUBE TP SCH ×2 (10:08→21:14)
[2023-02-22] MEDS ORDERED: ATORVASTATIN CA 40 MG TABLET (FP) ONE (19:18)
[2023-02-22] MEDS: MELATONIN 5 MG TABLETS PO SCH (21:13)
[2023-02-22] MEDS: THIAMINE HCL 100 MG TABLET (FP) PO SCH (21:13)
[2023-02-22] MEDS: ATORVASTATIN CA 80 MG TABLET (FP) PO SCH (21:14)
[2023-02-23] MEDS: INSULIN SLIDING SCALE (NOVOLOG) 1 VIAL SQ SCH ×4 (06:12→21:02)
[2023-02-23] MEDS: sitaGLIPtin PHOSPHATE 50 MG TABLET PO SCH ×2 (06:14→16:58)
[2023-02-23] MEDS: IBUPROFEN 600 MG TABLET (FP) PO PRN ×2 (06:14→21:02)
[2023-02-23] MEDS: GABAPENTIN 300 MG CAPSULE PO SCH ×3 (06:15→21:01)
[2023-02-23] MEDS: LEVOTHYROXINE NA 25 MCG TABLET (FP) PO SCH (06:15)
[2023-02-23] MEDS: metFORMIN HCL 500 MG TABLET (FP) PO SCH ×2 (06:15→16:58)
[2023-02-23] MEDS: DOLUTEGRAVIR SODIUM 50 MG TABLET (NON-FORMULARY) PO SCH (07:03)
[2023-02-23] MEDS: CLINDAMYCIN PHOSPHATE 1% TOPICAL GEL 30 GM TUBE TP SCH ×2 (09:52→21:02)
[2023-02-23] MEDS: FUROSEMIDE 40 MG TABLET (FP) PO SCH (09:52)
[2023-02-23] MEDS: ASPIRIN 81 MG CHEWABLE TABLETS PO SCH (09:52)
[2023-02-23] MEDS: PRENATAL VITAMINS W/ FOLIC ACID TABLET (FP) PO SCH (09:52)
[2023-02-23] MEDS: BISACODYL 5 MG TABLET.DR (FP) PO SCH (09:52)
[2023-02-23] MEDS: ERGOCALCIFEROL (VIT D2) 50,000 UNIT (1.25 MG) CAPSULE PO SCH (09:52)
[2023-02-23] MEDS: ASCORBIC ACID 500 MG TABLET (FP) PO SCH (09:52)
[2023-02-23] MEDS: PANTOPRAZOLE 20 MG TABLET PO SCH (09:52)
[2023-02-23] MEDS: ARIPiprazole 5 MG TABLET PO SCH (09:52)
[2023-02-23] MEDS: MAG HYDROX/AL HYDROX/SIMETH 30 ML UNIT-DOSE CUP PO PRN (18:48)
[2023-02-23] MEDS ORDERED: ATORVASTATIN CA 40 MG TABLET (FP) ONE (19:34)
[2023-02-23] MEDS: ATORVASTATIN CA 80 MG TABLET (FP) PO SCH (21:01)
[2023-02-23] MEDS: MELATONIN 5 MG TABLETS PO SCH (21:01)
[2023-02-23] MEDS: THIAMINE HCL 100 MG TABLET (FP) PO SCH (21:01)
[2023-02-24] MEDS: metFORMIN HCL 500 MG TABLET (FP) PO SCH ×2 (06:46→16:10)
[2023-02-24] MEDS: LEVOTHYROXINE NA 25 MCG TABLET (FP) PO SCH (06:46)
[2023-02-24] MEDS: GABAPENTIN 300 MG CAPSULE PO SCH ×3 (06:47→21:33)
[2023-02-24] MEDS: sitaGLIPtin PHOSPHATE 50 MG TABLET PO SCH ×2 (06:47→16:10)
[2023-02-24] MEDS: IBUPROFEN 600 MG TABLET (FP) PO PRN ×2 (06:47→21:33)
[2023-02-24] MEDS: INSULIN SLIDING SCALE (NOVOLOG) 1 VIAL SQ SCH ×4 (06:50→21:33)
[2023-02-24] MEDS: DOLUTEGRAVIR SODIUM 50 MG TABLET (NON-FORMULARY) PO SCH (07:33)
[2023-02-24] MEDS: PRENATAL VITAMINS W/ FOLIC ACID TABLET (FP) PO SCH (10:15)
[2023-02-24] MEDS: FUROSEMIDE 40 MG TABLET (FP) PO SCH (10:15)
[2023-02-24] MEDS: PANTOPRAZOLE 20 MG TABLET PO SCH (10:15)
[2023-02-24] MEDS: CLINDAMYCIN PHOSPHATE 1% TOPICAL GEL 30 GM TUBE TP SCH ×2 (10:15→21:33)
[2023-02-24] MEDS: BISACODYL 5 MG TABLET.DR (FP) PO SCH (10:15)
[2023-02-24] MEDS: ASCORBIC ACID 500 MG TABLET (FP) PO SCH (10:15)
[2023-02-24] MEDS: ASPIRIN 81 MG CHEWABLE TABLETS PO SCH (10:15)
[2023-02-24] MEDS: ARIPiprazole 5 MG TABLET PO SCH (10:15)
[2023-02-24] MEDS ORDERED: INSULIN SLIDING SCALE (NOVOLOG) 1 VIAL SQ ONE (11:22)
[2023-02-24] MEDS ORDERED: ATORVASTATIN CA 40 MG TABLET (FP) ONE (19:15)
[2023-02-24] MEDS: THIAMINE HCL 100 MG TABLET (FP) PO SCH (21:32)
[2023-02-24] MEDS: MELATONIN 5 MG TABLETS PO SCH (21:32)
[2023-02-24] MEDS: ATORVASTATIN CA 80 MG TABLET (FP) PO SCH (21:33)
[2023-02-25] MEDS: INSULIN SLIDING SCALE (NOVOLOG) 1 VIAL SQ SCH (06:08)
[2023-02-25] MEDS: LEVOTHYROXINE NA 25 MCG TABLET (FP) PO SCH (06:10)
[2023-02-25] MEDS: sitaGLIPtin PHOSPHATE 50 MG TABLET PO SCH (06:10)
[2023-02-25] MEDS: IBUPROFEN 600 MG TABLET (FP) PO PRN (06:10)
[2023-02-25] MEDS: metFORMIN HCL 500 MG TABLET (FP) PO SCH (06:10)
[2023-02-25] MEDS: GABAPENTIN 300 MG CAPSULE PO SCH (06:11)
[2023-02-25] MEDS: DOLUTEGRAVIR SODIUM 50 MG TABLET (NON-FORMULARY) PO SCH (07:01)
[2023-02-25 07:06] VITALS: TEMP 97.3
[2023-02-25] MEDS: ASCORBIC ACID 500 MG TABLET (FP) PO SCH (09:24)
[2023-02-25] MEDS: FUROSEMIDE 40 MG TABLET (FP) PO SCH (09:24)
[2023-02-25] MEDS: PRENATAL VITAMINS W/ FOLIC ACID TABLET (FP) PO SCH (09:24)
[2023-02-25] MEDS: BISACODYL 5 MG TABLET.DR (FP) PO SCH (09:25)
[2023-02-25] MEDS: ARIPiprazole 5 MG TABLET PO SCH (09:25)
[2023-02-25] MEDS: CLINDAMYCIN PHOSPHATE 1% TOPICAL GEL 30 GM TUBE TP SCH (09:25)
[2023-02-25] MEDS: ASPIRIN 81 MG CHEWABLE TABLETS PO SCH (09:25)
[2023-02-25] MEDS: PANTOPRAZOLE 20 MG TABLET PO SCH (09:25)
[2023-02-25 11:01] VITALS: BP 129/70; PULSE 72; RESP 16
== END 2023-02-25 09:51 | disposition home or self-care (01) | DRG 895 ==
LOC: YASAS 13:22 → Y3W 20:36
PROVIDERS: ADMIT Allergy & Immunology; ATTEND Psychiatry & Neurology Pain Medicine
PROC: HZ42ZZZ Group Counseling for Substance Abuse Treatment, Cognitive-Behavioral (ICD-10-PCS; principal; 2023-02-07)
DX: F10.20 Alcohol dependence, uncomplicated (principal); F11.20 Opioid dependence, uncomplicated; F14.20 Cocaine dependence, uncomplicated; F19.282 Other psychoactive substance dependence with psychoactive substance-induced sleep disorder; F17.210 Nicotine dependence, cigarettes, uncomplicated; F31.9 Bipolar disorder, unspecified; F20.9 Schizophrenia, unspecified; Z21 Asymptomatic human immunodeficiency virus [HIV] infection status; E78.5 Hyperlipidemia, unspecified; I10 Essential (primary) hypertension; E03.9 Hypothyroidism, unspecified; E11.9 Type 2 diabetes mellitus without complications; Z79.84 Long term (current) use of oral hypoglycemic drugs; L97.519 Non-pressure chronic ulcer of other part of right foot with unspecified severity; F19.24 Other psychoactive substance dependence with psychoactive substance-induced mood disorder; L30.9 Dermatitis, unspecified; L29.8 Other pruritus; L02.421 Furuncle of right axilla; Z99.89 Dependence on other enabling machines and devices; Z86.19 Personal history of other infectious and parasitic diseases; Z89.431 Acquired absence of right foot
CPT/HCPCS: 36415; 80053; 81003; 82962; 85027; 86780; 87635

== ENCOUNTER 2023-04-20 16:31 | Inpatient (IN) | payer OTHER ==
[2023-04-20 21:40] LABS: EOS % 2.2 % (0-4.5); HEMATOCRIT 35.3 % (35.4-49); HEMOGLOBIN 11.5 GM/dL (11.7-16.9); LYMPH % 34.9 % (8-40); MCH 28.6 pg (25.7-33.7); MCHC 32.5 g/dl (32.0-35.9); MEAN PLT VOLUME 7.9 fl (7.5-11.1); MONO % 9.2 % (3.8-10.2); NEUT % 52.7 % (42.8-82.8); PLATELET COUNT 74 10^3/uL (134-434); RBC 4.02 M/mm3 (4.00-5.60); RDW 16.1 % (11.9-15.9)
[2023-04-20 21:51] LABS: POTASSIUM 3.5 mmol/L (3.5-5.1)
[2023-04-20 21:53] LABS: CALCIUM 10.2 mg/dL (8.5-10.1)
[2023-04-20 21:54] LABS: ALBUMIN 3.4 g/dl (3.4-5.0); BLOOD UREA NITROGEN 15.2 mg/dL (7-18)
[2023-04-20 21:57] LABS: CREATININE 0.9 mg/dL (0.55-1.3)
[2023-04-20 21:59] LABS: BILIRUBIN,TOTAL 0.3 mg/dL (0.2-1)
[2023-04-20 22:59] LABS: ERYTHROCYTE SEDIMENTATION RATE 12 mm/hr (0-20)
[2023-04-20] MEDS ORDERED: PIPERACILLIN/TAZOB 4.5 GM 4.5 GM/100 ML BAG IVPB ONE (23:22)
[2023-04-20] MEDS: PIPERACILLIN/TAZOB 4.5 GM 4.5 GM in DEXTROSE 5%-WATER 100 ML IVPB ONE (23:26)
[2023-04-21] MEDS ORDERED: VANCOMYCIN 1 GRAM (PRE-DOCKED) 1,000 MG/250 ML BAG IVPB ONE ×2 (00:26→13:35)
[2023-04-21] MEDS: VANCOMYCIN 1,000 MG in DEXTROSE 5%-WATER - 250 ML IVPB ONE (00:39)
[2023-04-21] MEDS: GABAPENTIN 300 MG CAPSULE PO ONE (01:28)
[2023-04-21] MEDS: GABAPENTIN 300 MG CAPSULE PO SCH ×2 (03:13→15:10)
[2023-04-21] MEDS ORDERED: PIPERACILLIN/TAZOB 3.375 GM 3.375 GM/50 ML BAG IVPB ONE ×3 (04:38→18:44)
[2023-04-21] MEDS: PIPERACILLIN/TAZOB 3.375 GM 3.375 GM in DEXTROSE 5%-WATER - 50 ML IVPB SCH ×2 (05:00→18:48)
[2023-04-21 07:33] LABS: EOS % 2.1 % (0-4.5); HEMATOCRIT 34.4 % (35.4-49); HEMOGLOBIN 11.6 GM/dL (11.7-16.9); LYMPH % 31.2 % (8-40); MCH 29.2 pg (25.7-33.7); MCHC 33.6 g/dl (32.0-35.9); MEAN PLT VOLUME 7.5 fl (7.5-11.1); MONO % 8.9 % (3.8-10.2); NEUT % 56.8 % (42.8-82.8); PLATELET COUNT 72 10^3/uL (134-434); RBC 3.95 M/mm3 (4.00-5.60); RDW 16.1 % (11.9-15.9); WHITE BLOOD COUNT 2.8 K/mm3 (4.0-10.0)
[2023-04-21 07:54] LABS: CHLORIDE 108 mmol/L (98-107); POTASSIUM 3.7 mmol/L (3.5-5.1); SODIUM 141 mmol/L (136-145)
[2023-04-21] MEDS: INSULIN ASPART SLIDING SCALE (NOVOLOG) 1 VIAL SQ SCH (08:00)
[2023-04-21 08:09] LABS: CALCIUM 9.8 mg/dL (8.5-10.1); GLUCOSE,RANDOM 149 mg/dL (74-106); IRON SERUM 28 ug/dL (50-175)
[2023-04-21 08:10] LABS: ALBUMIN 3.3 g/dl (3.4-5.0); ANION GAP 4 mmol/L (4-13); BLOOD UREA NITROGEN 16.6 mg/dL (7-18); CO2 29 mmol/L (21-32); MAGNESIUM 1.7 mg/dL (1.8-2.4)
[2023-04-21 08:12] LABS: SGPT/ALT 15 U/L (13-61)
[2023-04-21 08:13] LABS: BILIRUBIN,TOTAL 0.5 mg/dL (0.2-1); SGOT/AST 10 U/L (15-37); TOT PROT 6.8 g/dl (6.4-8.2)
[2023-04-21 08:15] LABS: ALK PHOS 83 U/L (45-117); PHOSPHOROUS 2.7 mg/dL (2.5-4.9)
[2023-04-21 09:16] LABS: ERYTHROCYTE SEDIMENTATION RATE 12 mm/hr (0-20)
[2023-04-21] MEDS ORDERED: LEVOTHYROXINE NA 75 MCG TABLET (FP) PO SCH (10:00)
[2023-04-21] MEDS ORDERED: CALCIUM CARBONATE 200 MG PO SCH (10:00)
[2023-04-21] MEDS: ASPIRIN 81 MG CHEWABLE TABLETS PO SCH (11:00)
[2023-04-21] MEDS: ARIPiprazole 5 MG TABLET PO SCH (11:00)
[2023-04-21] MEDS: LEVOTHYROXINE NA 75 MCG TABLET (FP) PO SCH (11:00)
[2023-04-21] MEDS: ASCORBIC ACID 500 MG TABLET (FP) PO SCH (11:00)
[2023-04-21] MEDS: SPIRONOLACTONE 25 MG TABLET PO SCH (11:00)
[2023-04-21] MEDS: PANTOPRAZOLE 20 MG TABLET PO SCH (11:00)
[2023-04-21] MEDS: PRENATAL VITAMINS W/ FOLIC ACID TABLET (FP) PO SCH (11:00)
[2023-04-21] MEDS ORDERED: FUROSEMIDE 40 MG TABLET (FP) ONE (11:03)
[2023-04-21] MEDS: FUROSEMIDE 40 MG TABLET (FP) PO SCH (11:10)
[2023-04-21] MEDS: ENOXAPARIN NA (PORCINE) 40 MG/0.4 ML DISP.SYRIN SQ SCH (11:15)
[2023-04-21] MEDS ORDERED: MAGNESIUM SULF 50% (8.12 MEQ/2 ML-1 GM VIAL) ONE (12:12)
[2023-04-21] MEDS: MAGNESIUM SULF 50% (8.12 MEQ/2 ML-1 GM VIAL) IVPB ONE (12:40)
[2023-04-21] MEDS ORDERED: MAGNESIUM 1GM/D5W - 1 GM/100 ML IVPB IVPB ONE (13:36)
[2023-04-21] MEDS: VANCOMYCIN/WATER FOR INJ (PEG) 1,000 MG/200 ML BAG IVPB SCH (13:43)
[2023-04-21] MEDS ORDERED: INSULIN (NOVOLOG) ASPART 100 UNITS/ML 10ML VIAL ONE ×2 (15:08→21:07)
[2023-04-21] MEDS: NYSTATIN 100000 UNIT/GM TOPICAL OINTMENT 15 GM TUBE TP SCH (15:37)
[2023-04-21] MEDS ORDERED: DOXYCYCLINE HYCLATE 100 MG VIAL ONE (18:43)
[2023-04-21] MEDS ORDERED: DOXYCYCLINE HYCLATE 100 MG CAPSULE PO ONE (18:50)
[2023-04-21] MEDS: DOXYCYCLINE HYCLATE 100 MG CAPSULE PO SCH (18:55)
[2023-04-21] MEDS: DOLUTEGRAVIR SODIUM 50 MG TABLET (NON-FORMULARY) PO SCH (20:03)
[2023-04-21] MEDS: lamiVUDine 150 MG TABLET PO SCH (20:03)
[2023-04-21] MEDS: ATORVASTATIN CA 80 MG TABLET (FP) PO SCH (21:59)
[2023-04-22] MEDS: VANCOMYCIN 1,000 MG in DEXTROSE 5%-WATER - 250 ML IVPB SCH (00:04)
[2023-04-22] MEDS: PIPERACILLIN/TAZOB 3.375 GM 3.375 GM in DEXTROSE 5%-WATER - 50 ML IVPB SCH (00:05)
[2023-04-22 00:41] VITALS: BMI 24.5
[2023-04-22] MEDS ORDERED: INSULIN (NOVOLOG) ASPART 100 UNITS/ML 10ML VIAL ONE ×2 (05:03→22:46)
[2023-04-22 10:09] LABS: BASO % 1.2 % (0-2.0); EOS % 2.6 % (0-4.5); HEMATOCRIT 37.9 % (35.4-49); HEMOGLOBIN 12.3 GM/dL (11.7-16.9); LYMPH % 27.5 % (8-40); MCH 28.4 pg (25.7-33.7); MCHC 32.4 g/dl (32.0-35.9); MEAN CELL VOLUME 87.7 fl (80-96); MEAN PLT VOLUME 7.6 fl (7.5-11.1); MONO % 7.4 % (3.8-10.2); NEUT % 61.3 % (42.8-82.8); PLATELET COUNT 87 10^3/uL (134-434); RBC 4.32 M/mm3 (4.00-5.60); RDW 16.5 % (11.9-15.9); WHITE BLOOD COUNT 4.4 K/mm3 (4.0-10.0)
[2023-04-22 10:28] LABS: POTASSIUM 4.2 mmol/L (3.5-5.1)
[2023-04-22 10:33] LABS: ALBUMIN 3.5 g/dl (3.4-5.0); BLOOD UREA NITROGEN 14.7 mg/dL (7-18); CALCIUM 10.2 mg/dL (8.5-10.1)
[2023-04-22 10:37] LABS: PHOSPHOROUS 2.4 mg/dL (2.5-4.9)
[2023-04-22 10:38] LABS: BILIRUBIN,TOTAL 0.7 mg/dL (0.2-1); TOT PROT 7.4 g/dl (6.4-8.2)
[2023-04-22] MEDS: CEFTRIAXONE 1 GM in DEXTROSE 5%-WATER - 50 ML IVPB SCH (13:36)
[2023-04-22] MEDS: POTASSIUM PHOSPHATE 30 MM in SODIUM CHLORIDE 500 ML IVPB ONE (13:36)
[2023-04-22] MEDS: PATIENT'S OWN MEDICATION (NON-FORMULARY) (Dolutegravir Sodium/Lamivudine [Dovato 50-300 Mg PO SCH (14:05)
[2023-04-22] MEDS: INSULIN (NOVOLOG) ASPART 100 UNITS/ML 10ML VIAL SQ SCH (16:45)
[2023-04-22] MEDS: COLLAGENASE CLOSTRIDIUM HIST. 30 GRAMS TUBE TP SCH ×2 (20:08→23:09)
[2023-04-22] MEDS: INSULIN (LEVEMIR) 100 UNITS/ML UNITS SQ SCH (23:01)
[2023-04-23 09:18] LABS: EOS % 2.4 % (0-4.5); HEMOGLOBIN 13.8 GM/dL (11.7-16.9); LYMPH % 29.9 % (8-40); MCH 29.2 pg (25.7-33.7); MCHC 33.7 g/dl (32.0-35.9); MEAN CELL VOLUME 86.5 fl (80-96); MEAN PLT VOLUME 7.8 fl (7.5-11.1); MONO % 7.4 % (3.8-10.2); NEUT % 59.3 % (42.8-82.8); PLATELET COUNT 115 10^3/uL (134-434); RBC 4.74 M/mm3 (4.00-5.60); RDW 16.8 % (11.9-15.9); WHITE BLOOD COUNT 6.3 K/mm3 (4.0-10.0)
[2023-04-23 09:46] LABS: BLOOD UREA NITROGEN 22.9 mg/dL (7-18)
[2023-04-23 09:48] LABS: CALCIUM 10.8 mg/dL (8.5-10.1)
[2023-04-23 09:50] LABS: BILIRUBIN,TOTAL 0.6 mg/dL (0.2-1); CREATININE 1.1 mg/dL (0.55-1.3); PHOSPHOROUS 3.3 mg/dL (2.5-4.9)
[2023-04-23 09:53] LABS: TOT PROT 8.3 g/dl (6.4-8.2)
[2023-04-23] MEDS ORDERED: INSULIN (NOVOLOG) ASPART 100 UNITS/ML 10ML VIAL ONE ×2 (17:51→21:04)
[2023-04-23] MEDS: INSULIN (LEVEMIR) 100 UNITS/ML UNITS SQ SCH (21:19)
[2023-04-24] MEDS ORDERED: INSULIN (NOVOLOG) ASPART 100 UNITS/ML 10ML VIAL ONE ×3 (05:54→21:01)
[2023-04-24 07:51] LABS: BASO % 1.2 % (0-2.0); EOS % 2.6 % (0-4.5); HEMATOCRIT 39.5 % (35.4-49); LYMPH % 34.9 % (8-40); MCH 28.7 pg (25.7-33.7); MCHC 32.8 g/dl (32.0-35.9); MEAN CELL VOLUME 87.3 fl (80-96); MEAN PLT VOLUME 7.8 fl (7.5-11.1); MONO % 8.9 % (3.8-10.2); NEUT % 52.4 % (42.8-82.8); PLATELET COUNT 114 10^3/uL (134-434); RBC 4.52 M/mm3 (4.00-5.60); RDW 16.8 % (11.9-15.9); WHITE BLOOD COUNT 5.4 K/mm3 (4.0-10.0)
[2023-04-24 08:06] LABS: POTASSIUM 4.1 mmol/L (3.5-5.1)
[2023-04-24 08:08] LABS: ALBUMIN 3.7 g/dl (3.4-5.0); CALCIUM 10.3 mg/dL (8.5-10.1)
[2023-04-24 08:09] LABS: BLOOD UREA NITROGEN 28.5 mg/dL (7-18)
[2023-04-24 08:13] LABS: BILIRUBIN,TOTAL 0.5 mg/dL (0.2-1); TOT PROT 7.6 g/dl (6.4-8.2)
[2023-04-25] MEDS ORDERED: INSULIN (NOVOLOG) ASPART 100 UNITS/ML 10ML VIAL ONE (04:48)
[2023-04-25 08:50] LABS: BASO % 1.3 % (0-2.0); HEMATOCRIT 40.8 % (35.4-49); MCH 29.5 pg (25.7-33.7); MCHC 34.2 g/dl (32.0-35.9); MEAN CELL VOLUME 86.3 fl (80-96); MEAN PLT VOLUME 7.7 fl (7.5-11.1); MONO % 8.3 % (3.8-10.2); NEUT % 55.4 % (42.8-82.8); PLATELET COUNT 110 10^3/uL (134-434); RBC 4.73 M/mm3 (4.00-5.60); RDW 16.8 % (11.9-15.9); WHITE BLOOD COUNT 5.5 K/mm3 (4.0-10.0)
[2023-04-25 08:52] LABS: INR 1.24 (0.83-1.09); PROTHROMBIN TIME (PATIENT) 14.4 SEC (9.7-13.0)
[2023-04-25 08:55] LABS: ACTIVATED PTT 35.5 SECONDS (25.2-36.5)
[2023-04-25 09:10] LABS: POTASSIUM 4.1 mmol/L (3.5-5.1)
[2023-04-25] MEDS: TAMSULOSIN HCL 0.4 MG CAP PO SCH (09:11)
[2023-04-25 09:12] LABS: CALCIUM 10.7 mg/dL (8.5-10.1)
[2023-04-25 09:13] LABS: BLOOD UREA NITROGEN 28.2 mg/dL (7-18)
[2023-04-25 09:16] LABS: CREATININE 1.1 mg/dL (0.55-1.3)
[2023-04-25] MEDS: LISINOPRIL 5 MG TABLET PO SCH (09:17)
[2023-04-26] MEDS ORDERED: INSULIN (NOVOLOG) ASPART 100 UNITS/ML 10ML VIAL ONE ×3 (07:32→22:36)
[2023-04-26] MEDS ORDERED: ONDANSETRON 4 MG/2 ML VIAL IVPUSH PRN ×2 (08:25→09:31)
[2023-04-26] MEDS ORDERED: PROMETHAZINE HCL 25 MG/1 ML VIAL IVPB PRN ×2 (08:25→09:31)
[2023-04-26] MEDS ORDERED: PROPOFOL 20 ML ONE (08:44)
[2023-04-26] MEDS ORDERED: MIDAZOLAM HCL 2 MG/2 ML SINGLE DOSE VIAL ONE (08:44)
[2023-04-26] MEDS ORDERED: LIDOCAINE HCL/PF 2% SDV 5ML VIAL ONE (08:45)
[2023-04-26] MEDS: LIDOCAINE HCL 1%, 10 MG/ML (20ML VIAL) ID ONE (08:55)
[2023-04-26] MEDS ORDERED: VANCOMYCIN 1,000 MG VIAL (RESTRICTED TO ID ONLY) ONE (08:56)
[2023-04-26 09:27] LABS: BASO % 1.1 % (0-2.0); EOS % 2.5 % (0-4.5); HEMATOCRIT 39.3 % (35.4-49); HEMOGLOBIN 13.4 GM/dL (11.7-16.9); LYMPH % 33.2 % (8-40); MCH 29.4 pg (25.7-33.7); MEAN CELL VOLUME 86.4 fl (80-96); MONO % 8.2 % (3.8-10.2); PLATELET COUNT 113 10^3/uL (134-434); POTASSIUM 4.1 mmol/L (3.5-5.1); RBC 4.55 M/mm3 (4.00-5.60); RDW 16.8 % (11.9-15.9); WHITE BLOOD COUNT 5.3 K/mm3 (4.0-10.0)
[2023-04-26 09:32] LABS: BLOOD UREA NITROGEN 34.7 mg/dL (7-18); CALCIUM 10.9 mg/dL (8.5-10.1)
[2023-04-26] MEDS: LACTATED RINGERS SOLUTION 1,000 ML IV SCH ×2 (09:38→09:55)
[2023-04-26] MEDS: ASPIRIN 81 MG CHEWABLE TABLETS PO SCH (10:38)
[2023-04-26] MEDS: ARIPiprazole 5 MG TABLET PO SCH (10:38)
[2023-04-26] MEDS: LISINOPRIL 5 MG TABLET PO SCH (10:38)
[2023-04-26] MEDS: ASCORBIC ACID 500 MG TABLET (FP) PO SCH (10:38)
[2023-04-26] MEDS: FUROSEMIDE 40 MG TABLET (FP) PO SCH (10:38)
[2023-04-26] MEDS: ENOXAPARIN NA (PORCINE) 40 MG/0.4 ML DISP.SYRIN SQ SCH (10:38)
[2023-04-26] MEDS: SPIRONOLACTONE 25 MG TABLET PO SCH (10:38)
[2023-04-26] MEDS: NYSTATIN 100000 UNIT/GM TOPICAL OINTMENT 15 GM TUBE TP SCH (10:59)
[2023-04-26] MEDS: PRENATAL VITAMINS W/ FOLIC ACID TABLET (FP) PO SCH (10:59)
[2023-04-26] MEDS: INSULIN ASPART SLIDING SCALE (NOVOLOG) 1 VIAL SQ SCH (12:09)
[2023-04-26] MEDS: GABAPENTIN 300 MG CAPSULE PO SCH (16:56)
[2023-04-26] MEDS: ONDANSETRON 4 MG/2 ML VIAL IVPUSH PRN (17:59)
[2023-04-26] MEDS: CEFTRIAXONE 2 GM in DEXTROSE 5%-WATER 100 ML IVPB SCH (21:02)
[2023-04-26] MEDS: ATORVASTATIN CA 80 MG TABLET (FP) PO SCH (23:17)
[2023-04-26] MEDS: INSULIN (LEVEMIR) 100 UNITS/ML UNITS SQ SCH (23:20)
[2023-04-27] MEDS: MAG HYDROX/AL HYDROX/SIMETH 30 ML UNIT-DOSE CUP PO SCH (00:58)
[2023-04-27] MEDS: COLLAGENASE CLOSTRIDIUM HIST. 30 GRAMS TUBE TP SCH (03:37)
[2023-04-27] MEDS: PANTOPRAZOLE 20 MG TABLET PO SCH (07:05)
[2023-04-27] MEDS: LEVOTHYROXINE NA 75 MCG TABLET (FP) PO SCH (07:05)
[2023-04-27] MEDS: MAG HYDROX/AL HYDROX/SIMETH -MYLANTA- ORAL SUSPENSION PO SCH (08:05)
[2023-04-27] MEDS: ACETAMINOPHEN 1000 MG/100 ML BAG IVPB ONE (08:05)
[2023-04-27] MEDS: TAMSULOSIN HCL 0.4 MG CAP PO SCH (09:17)
[2023-04-27] MEDS: lamiVUDine 150 MG TABLET PO SCH (09:18)
[2023-04-27] MEDS: ERGOCALCIFEROL (VIT D2) 50,000 UNIT (1.25 MG) CAPSULE PO SCH (09:18)
[2023-04-27] MEDS: DOLUTEGRAVIR SODIUM 50 MG TABLET (NON-FORMULARY) PO SCH (09:18)
[2023-04-27 09:42] LABS: BASO % 0.9 % (0-2.0); EOS % 2.9 % (0-4.5); HEMATOCRIT 39.9 % (35.4-49); HEMOGLOBIN 13.1 GM/dL (11.7-16.9); LYMPH % 28.7 % (8-40); MCH 28.8 pg (25.7-33.7); MCHC 32.9 g/dl (32.0-35.9); MEAN CELL VOLUME 87.5 fl (80-96); MONO % 8.3 % (3.8-10.2); NEUT % 59.2 % (42.8-82.8); PLATELET COUNT 104 10^3/uL (134-434); RBC 4.56 M/mm3 (4.00-5.60); RDW 16.9 % (11.9-15.9); WHITE BLOOD COUNT 4.6 K/mm3 (4.0-10.0)
[2023-04-27] MEDS ORDERED: ERGOCALCIFEROL (VIT D2) 50,000 UNIT (1.25 MG) CAPSULE PO SCH (10:00)
[2023-04-27 10:16] LABS: POTASSIUM 4.1 mmol/L (3.5-5.1)
[2023-04-27 10:33] LABS: ALBUMIN 3.9 g/dl (3.4-5.0); BLOOD UREA NITROGEN 27.2 mg/dL (7-18); MAGNESIUM 2.4 mg/dL (1.8-2.4)
[2023-04-27 10:34] LABS: CALCIUM 10.5 mg/dL (8.5-10.1)
[2023-04-27 10:38] LABS: BILIRUBIN,TOTAL 0.6 mg/dL (0.2-1)
[2023-04-27] MEDS ORDERED: INSULIN (NOVOLOG) ASPART 100 UNITS/ML 10ML VIAL ONE (12:03)
[2023-04-28] MEDS ORDERED: INSULIN (NOVOLOG) ASPART 100 UNITS/ML 10ML VIAL ONE ×3 (06:30→17:10)
[2023-04-28 08:42] LABS: HEMATOCRIT 34.2 % (35.4-49); HEMOGLOBIN 11.6 GM/dL (11.7-16.9); MCH 29.2 pg (25.7-33.7); MCHC 33.7 g/dl (32.0-35.9); MEAN CELL VOLUME 86.6 fl (80-96); MEAN PLT VOLUME 8.3 fl (7.5-11.1); PLATELET COUNT 73 10^3/uL (134-434); RBC 3.95 M/mm3 (4.00-5.60); RDW 16.7 % (11.9-15.9); WHITE BLOOD COUNT 2.5 K/mm3 (4.0-10.0)
[2023-04-28 08:53] LABS: POTASSIUM 4.1 mmol/L (3.5-5.1)
[2023-04-28 09:07] LABS: ALBUMIN 3.5 g/dl (3.4-5.0); CALCIUM 10.2 mg/dL (8.5-10.1)
[2023-04-28 09:09] LABS: BLOOD UREA NITROGEN 32.5 mg/dL (7-18); MAGNESIUM 2.4 mg/dL (1.8-2.4)
[2023-04-28 09:13] LABS: BILIRUBIN,TOTAL 0.6 mg/dL (0.2-1); TOT PROT 7.1 g/dl (6.4-8.2)
[2023-04-28 09:34] LABS: ANISOCYTOSIS 0; MACROCYTOSIS 0
[2023-04-28] MEDS: SODIUM CHLORIDE 1,000 ML IV SCH (15:37)
[2023-04-28] MEDS: SODIUM CHLORIDE 500 ML IV STA (15:38)
[2023-04-28] MEDS: VANCOMYCIN/WATER FOR INJ (PEG) 1,000 MG/200 ML BAG IVPB SCH (16:44)
[2023-04-28] MEDS: ACETAMINOPHEN 500 MG TABLET (FP) PO PRN (21:54)
[2023-04-28 22:23] VITALS: RESP 18
[2023-04-29] MEDS ORDERED: MELATONIN 5 MG TABLETS PO PRN (05:06)
[2023-04-29 05:21] VITALS: BP 103/58; PULSE 58; TEMP 98.1
[2023-04-29 08:11] LABS: EOS % 2.7 % (0-4.5); HEMATOCRIT 36.7 % (35.4-49); LYMPH % 40.4 % (8-40); MCH 28.8 pg (25.7-33.7); MCHC 32.7 g/dl (32.0-35.9); MEAN CELL VOLUME 88.2 fl (80-96); MEAN PLT VOLUME 8.1 fl (7.5-11.1); MONO % 10.5 % (3.8-10.2); NEUT % 45.4 % (42.8-82.8); PLATELET COUNT 68 10^3/uL (134-434); RBC 4.16 M/mm3 (4.00-5.60); RDW 16.7 % (11.9-15.9); WHITE BLOOD COUNT 2.3 K/mm3 (4.0-10.0)
[2023-04-29 08:19] LABS: POTASSIUM 4.4 mmol/L (3.5-5.1)
[2023-04-29 08:24] LABS: CALCIUM 9.7 mg/dL (8.5-10.1)
[2023-04-29 08:26] LABS: ALBUMIN 3.6 g/dl (3.4-5.0); BLOOD UREA NITROGEN 21.7 mg/dL (7-18); MAGNESIUM 2.2 mg/dL (1.8-2.4)
[2023-04-29 08:29] LABS: CREATININE 0.9 mg/dL (0.55-1.3)
[2023-04-29 08:30] LABS: BILIRUBIN,TOTAL 0.3 mg/dL (0.2-1); TOT PROT 7.3 g/dl (6.4-8.2)
[2023-04-29] MEDS: DALBAVANCIN HCL 1,500 MG in DEXTROSE 5%-WATER - 500 ML IVPB ONE (09:20)
== END 2023-04-29 14:59 | disposition other institution (70) | DRG 478 ==
LOC: JER 16:31 → JERBED 23:09 → J8W 04-21 20:18
PROVIDERS: ADMIT Internal Medicine; ATTEND Nurse Practitioner Acute Care
PROC: 0QBN0ZX Excision of Right Metatarsal, Open Approach, Diagnostic (ICD-10-PCS; principal; 2023-04-26 09:00)
DX: T87.40 Infection of amputation stump, unspecified extremity (principal); F11.20 Opioid dependence, uncomplicated; M96.89 Other intraoperative and postprocedural complications and disorders of the musculoskeletal system; L03.90 Cellulitis, unspecified; L03.115 Cellulitis of right lower limb; F20.9 Schizophrenia, unspecified; E03.9 Hypothyroidism, unspecified; I10 Essential (primary) hypertension; F31.9 Bipolar disorder, unspecified; E11.40 Type 2 diabetes mellitus with diabetic neuropathy, unspecified; J45.909 Unspecified asthma, uncomplicated; R63.4 Abnormal weight loss; Y83.9 Surgical procedure, unspecified as the cause of abnormal reaction of the patient, or of later complication, without mention of misadventure at the time of the procedure; E78.5 Hyperlipidemia, unspecified; F17.210 Nicotine dependence, cigarettes, uncomplicated; K21.9 Gastro-esophageal reflux disease without esophagitis; Z21 Asymptomatic human immunodeficiency virus [HIV] infection status; A49.02 Methicillin resistant Staphylococcus aureus infection, unspecified site
CPT/HCPCS: 36415; 73630-TC-RT-FY; 73718-TC-RT; 80048; 80053; 82728; 82962; 83036; 83540; 83550; 83735; 84100; 85025; 85045; 85610; 85651; 85730; 86140; 86359; 86360; 86850; 86900; 86901; 87070; 87075; 87186; 87635; 93005; 93010; 93926-TC; 94760; 99285-25; J0875

== ENCOUNTER 2023-11-22 10:16 | Inpatient (IN) | payer OTHER ==
[2023-11-22 10:57] VITALS: BMI 25.1
[2023-11-22] MEDS ORDERED: LOPERAMIDE HCL 2 MG CAPSULE PO PRN (13:43)
[2023-11-22] MEDS ORDERED: NALOXONE HCL 0.4 MG/ML VIAL IM PRN (13:43)
[2023-11-22] MEDS ORDERED: POLYETHYLENE GLYCOL (HEALTHYLAX) 3350 17 GM PACKET PO PRN (13:43)
[2023-11-22] MEDS ORDERED: guaiFENesin 600 MG TABLET.ER (FP) PO PRN (13:43)
[2023-11-22] MEDS ORDERED: BENZOCAINE/MENTHOL (CHLORASEPTIC ) LOZENGE MM PRN (13:43)
[2023-11-22] MEDS ORDERED: NALOXONE (NARCAN) HCL 4 MG/0.1 ML SPRAY NS PRN (13:43)
[2023-11-22] MEDS ORDERED: BENZONATATE 200 MG CAPSULE PO PRN (13:43)
[2023-11-22] MEDS ORDERED: MAG HYDROX/AL HYDROX/SIMETH 30 ML UNIT-DOSE CUP PO PRN (13:43)
[2023-11-22] MEDS ORDERED: MAGNESIUM HYDROX 2400MG/30ML ORAL SUSPENSION 30 ML CUP PO PRN (13:43)
[2023-11-22] MEDS ORDERED: NICOTINE POLACRILEX 2 MG GUM BUC PRN (13:43)
[2023-11-22] MEDS ORDERED: GABAPENTIN 100 MG CAPSULE ONE (14:39)
[2023-11-22] MEDS ORDERED: ALBUTEROL SO4 HFA INHALER IH ONE (14:39)
[2023-11-22] MEDS: GABAPENTIN 300 MG CAPSULE PO SCH (14:44)
[2023-11-22] MEDS: ALBUTEROL SO4 HFA INHALER IH SCH (14:44)
[2023-11-22] MEDS ORDERED: INSULIN ASPART SLIDING SCALE (NOVOLOG) 1 VIAL SQ SCH (16:30)
[2023-11-22] MEDS: INSULIN ASPART SLIDING SCALE (NOVOLOG) 1 VIAL SQ SCH (16:55)
[2023-11-22] MEDS ORDERED: TUBERCULIN PPD 5 TU/0.1ML SYRINGE (IN PATIENT USE ONLY) ID ONE (18:00)
[2023-11-22] MEDS: DOLUTEGRAVIR SODIUM 50 MG TABLET (NON-FORMULARY) PO SCH (18:37)
[2023-11-22] MEDS: lamiVUDine 150 MG TABLET PO ONE (18:39)
[2023-11-22] MEDS: IBUPROFEN 600 MG TABLET (FP) PO PRN (18:40)
[2023-11-22] MEDS: MELATONIN 5 MG TABLETS PO SCH (21:41)
[2023-11-22] MEDS: ATORVASTATIN CA 80 MG TABLET (FP) PO SCH (21:41)
[2023-11-22] MEDS: THIAMINE 100 MG TABLET PO SCH (21:42)
[2023-11-23] MEDS: LEVOTHYROXINE NA 25 MCG TABLET (FP) PO SCH (06:41)
[2023-11-23] MEDS ORDERED: DOLUTEGRAVIR SODIUM 50 MG TABLET (NON-FORMULARY) PO SCH (08:00)
[2023-11-23] MEDS ORDERED: PATIENT'S OWN MEDICATION (NON-FORMULARY) (Dolutegravir Sodium/Lamivudine [Dovato 50-300 Mg PO SCH (10:00)
[2023-11-23] MEDS: PANTOPRAZOLE 20 MG TABLET PO SCH (10:12)
[2023-11-23] MEDS: TAMSULOSIN HCL 0.4 MG CAP PO SCH (10:12)
[2023-11-23] MEDS: ASPIRIN 81 MG CHEWABLE TABLETS PO SCH (10:12)
[2023-11-23] MEDS: PRENATAL VITAMINS W/ FOLIC ACID TABLET (FP) PO SCH (10:12)
[2023-11-23] MEDS: NICOTINE 14 MG/24 HOURS TOPICAL PATCH TD SCH (10:13)
[2023-11-23 13:45] LABS: HEMATOCRIT 39.2 % (35.4-49); HEMOGLOBIN 13.2 GM/dL (11.7-16.9); MCHC 33.8 g/dl (32.0-35.9); MEAN CELL VOLUME 88.9 fl (80-96); MEAN PLT VOLUME 8.3 fl (7.5-11.1); PLATELET COUNT 97 10^3/uL (134-434); RBC 4.41 M/mm3 (4.00-5.60); RDW 15.4 % (11.9-15.9); WHITE BLOOD COUNT 4.2 K/mm3 (4.0-10.0)
[2023-11-23 14:55] LABS: POTASSIUM 4.2 mmol/L (3.5-5.1)
[2023-11-23 15:00] LABS: CALCIUM 10.2 mg/dL (8.5-10.1)
[2023-11-23 15:01] LABS: ALBUMIN 3.8 g/dl (3.4-5.0); BLOOD UREA NITROGEN 16.4 mg/dL (7-18)
[2023-11-23 15:04] LABS: CREATININE 0.9 mg/dL (0.55-1.3)
[2023-11-23 15:05] LABS: BILIRUBIN,TOTAL 0.5 mg/dL (0.2-1); TOT PROT 7.3 g/dl (6.4-8.2)
[2023-11-23] MEDS ORDERED: ATORVASTATIN CA 40 MG TABLET (FP) ONE (21:16)
[2023-11-24 11:35] LABS: PH,URINE 5.5 (5.0-8.0); URINE APPEARANCE CLEAR; URINE BILIRUBIN NEGATIVE (NEGATIVE); URINE COLOR YELLOW; URINE GLUCOSE (UA) 3+ (NEGATIVE); URINE KETONE NEGATIVE (NEGATIVE); URINE LEUK ESTERASE NEGATIVE (NEGATIVE); URINE NITRITE NEGATIVE (NEGATIVE); URINE PROTEIN NEGATIVE (NEGATIVE); URINE UROBILINOGEN 0.2 mg/dL (0.2-1.0)
[2023-11-24] MEDS ORDERED: ATORVASTATIN CA 40 MG TABLET (FP) ONE (20:45)
[2023-11-25] MEDS ORDERED: INSULIN ASPART SLIDING SCALE (NOVOLOG) 1 VIAL SQ ONE ×2 (10:43→22:16)
[2023-11-25] MEDS ORDERED: ALBUTEROL SO4 HFA INHALER IH SCH (14:15)
[2023-11-25] MEDS ORDERED: ALBUTEROL SO4 HFA INHALER IH PRN (14:58)
[2023-11-25] MEDS ORDERED: ATORVASTATIN CA 40 MG TABLET (FP) ONE (18:53)
[2023-11-26] MEDS ORDERED: ATORVASTATIN CA 40 MG TABLET (FP) ONE (20:40)
[2023-11-27] MEDS ORDERED: ATORVASTATIN CA 40 MG TABLET (FP) ONE (20:38)
[2023-11-28] MEDS ORDERED: INSULIN ASPART SLIDING SCALE (NOVOLOG) 1 VIAL SQ ONE (10:18)
[2023-11-28] MEDS: BACITRACIN 0.9 GM PACKET TP ONE (13:37)
[2023-11-28] MEDS: metFORMIN HCL 500 MG TABLET (FP) PO SCH (16:37)
[2023-11-28] MEDS: sitaGLIPtin PHOSPHATE 50 MG TABLET PO SCH (17:03)
[2023-11-28] MEDS ORDERED: ATORVASTATIN CA 40 MG TABLET (FP) ONE (20:42)
[2023-11-28] MEDS: INSULIN (LEVEMIR) 100 UNITS/ML UNITS SQ SCH (21:22)
[2023-11-29] MEDS: FLU VACCINE (FLULAVAL) PF 45 MCG/0.5 ML SYRINGE 2024-2025 IM ONE (10:28)
[2023-11-29] MEDS ORDERED: ATORVASTATIN CA 40 MG TABLET (FP) ONE (21:26)
[2023-11-30] MEDS: ARIPiprazole 5 MG TABLET PO SCH (12:00)
[2023-11-30] MEDS: ACETAMINOPHEN 325 MG TABLET (FP) PO PRN (13:39)
[2023-11-30] MEDS: BACITRACIN 0.9 GM PACKET TP PRN (19:17)
[2023-11-30] MEDS ORDERED: ATORVASTATIN CA 40 MG TABLET (FP) ONE (20:48)
[2023-11-30] MEDS: QUEtiapine FUMARATE 25 MG TABLET PO SCH (21:50)
[2023-12-02] MEDS ORDERED: ATORVASTATIN CA 40 MG TABLET (FP) ONE (20:37)
[2023-12-03] MEDS ORDERED: ATORVASTATIN CA 40 MG TABLET (FP) ONE (20:12)
[2023-12-04] MEDS ORDERED: ATORVASTATIN CA 40 MG TABLET (FP) ONE (20:09)
[2023-12-05] MEDS ORDERED: ATORVASTATIN CA 40 MG TABLET (FP) ONE (20:30)
[2023-12-06] MEDS ORDERED: ATORVASTATIN CA 40 MG TABLET (FP) ONE (20:00)
[2023-12-07] MEDS ORDERED: ATORVASTATIN CA 40 MG TABLET (FP) ONE (20:35)
[2023-12-08] MEDS ORDERED: ATORVASTATIN CA 40 MG TABLET (FP) ONE (20:37)
[2023-12-09] MEDS ORDERED: NALOXONE (NYS OPIOID OVERDOSE PROGRAM) 4 MG/0.1 ML SPRAY NS PRN (14:47)
[2023-12-09] MEDS: NALOXONE (NYS OPIOID OVERDOSE PROGRAM) 4 MG/0.1 ML SPRAY NS ONE (15:00)
[2023-12-09] MEDS ORDERED: ATORVASTATIN CA 40 MG TABLET (FP) ONE (21:22)
[2023-12-10] MEDS ORDERED: ATORVASTATIN CA 40 MG TABLET (FP) ONE (20:18)
[2023-12-11] MEDS ORDERED: ATORVASTATIN CA 40 MG TABLET (FP) ONE (20:45)
[2023-12-12] MEDS ORDERED: ATORVASTATIN CA 40 MG TABLET (FP) ONE (20:29)
[2023-12-13] MEDS: IBUPROFEN 400 MG TABLET (FP) PO PRN (06:03)
[2023-12-13] MEDS ORDERED: ATORVASTATIN CA 40 MG TABLET (FP) ONE (21:16)
[2023-12-14 09:54] VITALS: BP 103/64; PULSE 72; RESP 18; TEMP 97.7
== END 2023-12-14 14:07 | disposition home or self-care (01) | DRG 895 ==
LOC: YASAS 10:16 → Y3NR 14:59 → Y3W 11-23 14:54
PROVIDERS: ADMIT Psychiatry & Neurology Pain Medicine; ATTEND Psychiatry & Neurology Pain Medicine
PROC: HZ42ZZZ Group Counseling for Substance Abuse Treatment, Cognitive-Behavioral (ICD-10-PCS; principal; 2023-11-22)
DX: F14.20 Cocaine dependence, uncomplicated (principal); F19.282 Other psychoactive substance dependence with psychoactive substance-induced sleep disorder; F17.210 Nicotine dependence, cigarettes, uncomplicated; F19.24 Other psychoactive substance dependence with psychoactive substance-induced mood disorder; F20.9 Schizophrenia, unspecified; F31.9 Bipolar disorder, unspecified; F41.9 Anxiety disorder, unspecified; Z21 Asymptomatic human immunodeficiency virus [HIV] infection status; E03.9 Hypothyroidism, unspecified; E11.621 Type 2 diabetes mellitus with foot ulcer; Z79.84 Long term (current) use of oral hypoglycemic drugs; I10 Essential (primary) hypertension; J45.909 Unspecified asthma, uncomplicated; K21.9 Gastro-esophageal reflux disease without esophagitis; N40.0 Benign prostatic hyperplasia without lower urinary tract symptoms; N52.9 Male erectile dysfunction, unspecified; Z96.0 Presence of urogenital implants; Z89.431 Acquired absence of right foot; Z86.19 Personal history of other infectious and parasitic diseases; Z86.73 Personal history of transient ischemic attack (TIA), and cerebral infarction without residual deficits; Z79.899 Other long term (current) drug therapy
CPT/HCPCS: 36415; 80053; 80305; 80307; 81003; 82962; 83036; 85027; 86780; 87811; 90656; 93005; 93010; G0008